=== PATIENT | male | born 1975 | race Caucasian/White ===

== ENCOUNTER → 2018-11-16 08:45 | Outpatient (CLI) | payer OTHER, MEDICAID, SELFPAY ==
--- NOTE | 2018-11-16 08:46 | DI.US.S_ITS ---
PROCEDURE: US SCROTUM INDICATIONS: scrotal mass TECHNIQUE: Real-time scanning was performed of the scrotum and testicles, with image documentation. Color and pulse Doppler interrogation was performed of both testicles. COMPARISON: None. FINDINGS: Right: Testicle is normal in size at 4.2 x 2.9 x 2.5 cm, and homogenous in echotexture. Epididymis is normal in overall size and morphology. No hydrocele or varicoceles. Overlying scrotal skin is normal in thickness. Left: Testicle is normal in size at 4 x 2.5 x 2.4 cm, and homogeneous in echotexture. The epididymal head is prominent and heterogeneous, yet without masses identified. No varicoceles. There is a moderately sized left-sided hydrocele. Overlying scrotal skin is normal in thickness. Doppler: Color and pulse Doppler demonstrate normal and symmetric arterial flow in both testicles. IMPRESSION: No intratesticular masses are seen. Moderate left-sided hydrocele. Prominent, heterogeneous left epididymis, yet without a focal mass identified. Dictated by: Timi Sears M.D. on 11/16/2018 at 8:48 Approved by: Timi Sears M.D. on 11/16/2018 at 8:50
== END ==
PROVIDERS: Family Provider Internal Medicine; PCP Family Medicine; Visit Provider Physician Assistant
DX: N50.9 Disorder of male genital organs, unspecified (principal); N43.3 Hydrocele, unspecified
CPT/HCPCS: 76870

== ENCOUNTER → 2019-01-22 15:17 | Outpatient (CLI) | payer OTHER, MEDICAID, SELFPAY ==
[2019-01-22 16:06] LABS: Appearance Urine UA CLEAR; Bilirubin Urine UA NEGATIVE (NEGATIVE); Color Urine UA YELLOW; Glucose Urine UA NEGATIVE (Negative); Ketones Urine UA NEGATIVE (NEGATIVE); Leukocyte Esterase Urine UA NEGATIVE (NEGATIVE); Nitrite Urine UA NEGATIVE (Negative); Occult Blood Urine UA 1+ (Negative); Protein Urine UA NEGATIVE (Negative); Specific Gravity Urine UA >=1.030 (1.000-1.035); Urobilinogen Urine UA 0.2 E.U./dL (0.2)
[2019-01-22 17:05] LABS: Bacteria Urine Few (2-10); Culture Indicated Urine Cult Not Indicated; RBC Urine 0-1/HPF (0-5/HPF); WBC Urine 0-1/HPF (0-5/HPF)
[2019-01-22 17:22] LABS: Hematocrit 39.8 % (41-53); Hemoglobin 13.9 g/dL (13.5-17.5); Mean Corpuscular HGB Conc 34.8 % (30-36); Mean Corpuscular Hemoglobin 31.1 PG (26-34); Mean Corpuscular Volume 89.3 fL (80-100); Platelet Count 249 X10^3/uL (150-400); Red Blood Cell Count 4.46 X10^6/uL (4.5-5.9); Red Cell Distribution Width 12.4 % (11.6-14.8); White Blood Cell Count 6.1 X10^3/uL (4.5-11.0)
[2019-01-22 17:33] LABS: HEMOLYSIS < 15 (0-50); Iron 127 ug/dL (49-181)
[2019-01-22 17:36] LABS: Alanine Aminotransferase 25 IU/L (21-72); Albumin 4.6 g/dL (3.5-5.0); Albumin Globulin Ratio 1.5 (1.0-2.8); Alkaline Phosphatase 68 U/L (38-126); Aspartate Aminotransferase 26 IU/L (17-59); BUN Creatinine Ratio 17.5 (6-22); Bilirubin Total 0.8 mg/dL (0.2-1.3); Blood Urea Nitrogen 14 mg/dL (9-20); Calcium 9.6 mg/dL (8.4-10.2); Carbon Dioxide 27 mmol/L (22-32); Chloride 103 mmol/L (98-107); Estimated Glomerular Filt Rate > 60.0 mL/min (>60); Globulin 3.1 g/dL (1.7-4.1); Glucose 73 mg/dL (70-100); HEMOLYSIS < 15 (0-50); Potassium 4.1 mmol/L (3.4-5.1); Sodium 139 mmol/L (137-145); Total Protein 7.7 g/dL (6.3-8.2)
[2019-01-22 17:44] LABS: Percent Iron Saturation 35 % (20-50); Total Iron Binding Capacity 361 ug/dL (261-462); Transferrin 280 mg/dL (206-381)
[2019-01-22 18:08] LABS: Ferritin 63.2 ng/mL (17.9-464)
[2019-01-22 18:18] LABS: Neutrophils Absolute Manual 4209 /uL (3000-5900); Nucleated Red Blood Cells 1 #/Diff; Total Cells Counted 100
[2019-01-22 18:19] LABS: Anisocytosis 1+; Hypochromasia 1+
[2019-01-22 18:39] LABS: Folate 13.6 ng/mL (2.76-20.0); Vitamin B12 536 pg/mL (239-931)
== END ==
PROVIDERS: Family Provider Internal Medicine; PCP Family Medicine; Visit Provider Nurse Practitioner Family
DX: R42 Dizziness and giddiness (principal)
CPT/HCPCS: 36415; 80053; 81001; 82607; 82728; 82746; 83540; 83550; 84443; 85025

== ENCOUNTER → 2019-01-22 15:18 | Outpatient (CLI) | payer OTHER, MEDICAID, SELFPAY | PROVIDERS: Visit Provider Nurse Practitioner Family | DX: R42 Dizziness and giddiness (principal); R53.83 Other fatigue ==

== ENCOUNTER 2019-09-19 19:27 | Emergency (ER) | payer OTHER, MEDICAID, SELFPAY ==
[2019-09-19 19:34] VITALS: BP 138/90; PULSE 70; RESP 14; TEMP 36.7; O2SAT 96; BMI 35.2
[2019-09-19] MEDS: PENICILLIN VK 250 MG TABLET 500 MG PO (20:02)
[2019-09-19] MEDS: KETOROLAC 60 MG/2 ML VIAL IM (20:02)
--- NOTE | 2019-09-19 20:33 | ED.DENTAL ---
HPI - Dental/Oral <RUDY Garcia - Last Filed: 09/19/19 20:36> General Chief complaint: Dental/Oral Stated complaint: tooth ache, thinks he broke something Time Seen by Provider: 09/19/19 19:30 Source: patient and family Mode of arrival: Ambulatory Limitations: no limitations History of Present Illness HPI Narrative: The patient is a 44-year-old current smoker with history of dental infection who presents with a chief complaint of sudden onset of right upper molar pain that started today. He states he thinks he broke that tooth a while ago, took some old antibiotics for an then got better. However today's becoming increasingly painful. He complains of pain and swelling. Denies any fevers nausea vomiting or diarrhea. He has tried ibuprofen and topical medication. He has not called his dentist source primary care provider yet. Related Data Previous Rx's Medication Instructions Recorded ketorolac 10 mg PO TID PRN #10 tab 09/19/19 penicillin V potassium 500 mg PO QID #40 tab 09/19/19 Allergies Allergy/AdvReac Type Severity Reaction Status Date / Time No Known Drug Allergies Allergy Verified 01/12/19 15:14 Review of Systems <RUDY Garcia - Last Filed: 09/19/19 20:36> Review of Systems Narrative: GENERAL: Denies chills, fatigue, malaise, fever, sweats. HEENT: See HPI RESPIRATORY: Denies dyspnea, cough, wheezing, hemoptysis, sputum. CARDIOVASCULAR: Denies chest pain, palpitations, orthopnea, edema, GASTROINTESTINAL: Denies nausea, vomiting, abdominal pain, diarrhea, constipation, melena. : Denies dysuria, frequency, incontinence, hematuria, urinary retention. MUSCULOSKELETAL: denies weakness, joint pain, or bony pain SKIN: Denies rash, skin lesions, or other NEUROLOGIC: Denies weakness, headache, numbness, change in speech, confusion, seizures, incoordination. PSYCHIATRIC: No concerning psychosocial issues. 12 point review of systems is negative except for those stated above Patient History <RUDY Garcia - Last Filed: 09/19/19 20:36> Social History Smoking Status: Current every day smoker Smoking Status: Current every day smoker alcohol intake frequency: 0-2 drinks per day Substance Use Type: does not use Exam <RUDY Garcia - Last Filed: 09/19/19 20:36> Narrative Exam Narrative: GENERAL: This is a well-nourished, well-developed patient, appears uncomfortable HEAD: Atraumatic. Normocephalic. No temporal or scalp tenderness. EYES: Pupils equal round and reactive. Extraocular motions intact. No scleral icterus. No injection or drainage. ENT: Nose without bleeding, purulent drainage or septal hematoma. Throat without erythema, tonsillar hypertrophy or exudate. Uvula midline. Airway patent. Poor dentition noted. Erythema and swelling noted around right front molar upper side multiple fractured or broken teeth noted NECK: Trachea midline. No JVD or lymphadenopathy. Supple, nontender, no meningeal signs. CARDIOVASCULAR: Regular rate and rhythm RESPIRATORY: No cough. No increased respiratory effort. No accessory muscle use. EXTREMITIES: No clubbing, cyanosis, or edema. No joint tenderness, effusion, or edema noted. BACK: Nontender without deformity or crepitance. No flank tenderness. NEURO: AOx3. SKIN: No rash or erythema. Initial Vital Signs Initial Vital Signs: Vital Signs Temperature 98.0 F 09/19/19 19:34 Pulse Rate 70 09/19/19 19:34 Respiratory Rate 14 09/19/19 19:34 Blood Pressure 138/90 09/19/19 19:34 Pulse Oximetry 96 09/19/19 19:34 <Lucius Dougherty DO - Last Filed: 09/19/19 21:21> Initial Vital Signs Initial Vital Signs: Vital Signs Temperature 98.0 F 09/19/19 19:34 Pulse Rate 70 09/19/19 19:34 Respiratory Rate 14 09/19/19 19:34 Blood Pressure 138/90 09/19/19 19:34 Pulse Oximetry 96 09/19/19 19:34 Scores <RUDY Garcia - Last Filed: 09/19/19 20:36> GCS Yvette coma scale eye opening: Spontaneous Yvette coma scale verbal response: Orientated [place] coma scale motor response: Obey commands Yvette coma scale total score: 15 Course <RUDY Garcia - Last Filed: 09/19/19 20:36> Orders Ordered: Discontinued Medications Ketorolac Tromethamine (Toradol) 60 mg IM NOW ONE Stop: 09/19/19 19:52 Last Admin: 09/19/19 20:02 Dose: 60 mg Documented by: YANDY Ketorolac Tromethamine (Toradol 10mg Prepack) 1 bottle MISC SEEINSTR ONE Stop: 09/19/19 20:32 Penicillin V Potassium (Veetids) 500 mg PO NOW ONE Stop: 09/19/19 19:52 Last Admin: 09/19/19 20:02 Dose: 500 mg Documented by: YANDY Penicillin V Potassium (Penicillin Vk 250mg Tab Prepack) 1 bottle MISC SEEINSTR ONE Stop: 09/19/19 20:32 Last Admin: 09/19/19 20:51 Dose: 1 bottle Documented by: YANDY Vital Signs Vital signs: Vital Signs - 8 hr 09/19/19 19:34 09/19/19 20:54 Temperature 98.0 F Pulse Rate 70 82 Respiratory Rate 14 14 Blood Pressure 138/90 131/88 Pulse Oximetry 96 100 <Lucius Dougherty DO - Last Filed: 09/19/19 21:21> Orders Ordered: Discontinued Medications Ketorolac Tromethamine (Toradol) 60 mg IM NOW ONE Stop: 09/19/19 19:52 Last Admin: 09/19/19 20:02 Dose: 60 mg Documented by: YANDY Ketorolac Tromethamine (Toradol 10mg Prepack) 1 bottle MISC SEEINSTR ONE Stop: 09/19/19 20:32 Penicillin V Potassium (Veetids) 500 mg PO NOW ONE Stop: 09/19/19 19:52 Last Admin: 09/19/19 20:02 Dose: 500 mg Documented by: YANDY Penicillin V Potassium (Penicillin Vk 250mg Tab Prepack) 1 bottle MISC SEEINSTR ONE Stop: 09/19/19 20:32 Last Admin: 09/19/19 20:51 Dose: 1 bottle Documented by: YANDY Vital Signs Vital signs: Vital Signs - 8 hr 09/19/19 19:34 09/19/19 20:54 Temperature 98.0 F Pulse Rate 70 82 Respiratory Rate 14 14 Blood Pressure 138/90 131/88 Pulse Oximetry 96 100 MDM - Dental/Oral <RUDY Garcia - Last Filed: 09/19/19 20:36> MDM Narrative Medical decision making narrative: The patient is a 44-year-old male who presents with a chief complaint of dental pain a possible infection. Exam indicates infection. Started patient on penicillin Vee K. Patient was given Toradol IM in the emergency department felt much better. Was also given prescription of Toradol strict instructions to not combine it with ibuprofen Aleve or any other NSAIDs. Discussed at length the importance of following up with primary care provider as well as his dentist. Patient did not want anything stronger for his pain. Discussed monitor for signs of systemic infection. Patient has no questions or concerns upon discharge and states understanding of return precautions as well as follow-up care. Discharge Plan Departure Patient Disposition: Home Clinical Impression: Dental infection Fracture of tooth Qualifiers: Encounter type: initial encounter Fracture type: closed Qualified Code(s): S02.5XXA - Fracture of tooth (traumatic), initial encounter for closed fracture Discharge Date/Time: 09/19/19 20:56 Instructions: Tooth Abscess, DI for Dental Pain Activity Restrictions/Additional Instructions: Please follow up with a dentist as soon as possible. I sent a prescription of an antibiotic to [facility] as well as a prescription of Toradol. We have given you take-home packs of Toradol and penicillin as well I have given you a prescription of Toradol. This is an NSAID. Do not combine it with other NSAIDs such as Aleve or ibuprofen. I suggest taking it with some food, as it can irritate your stomach. Please monitor for fever, inability keep down fluids etcetera Please also follow up with primary care provider Please come back to the emergency department for any acute concerns Prescriptions: New penicillin V potassium 500 mg tablet 500 mg PO QID Qty: 40 RF: 0 ketorolac 10 mg tablet 10 mg PO TID PRN (Reason: pain) Qty: 10 RF: 0 <Lucius Dougherty, DO - Last Filed: 09/19/19 21:21> Sign Out Provider Sign Out Attestation: Dr Dougherty Co-Sign Statement: I was available for consultation during this patient's emergency department visit. This chart is signed by myself for administrative purposes only. I did not have direct contact with this patient during this visit. They were seen independently by the APC.
[2019-09-19] MEDS: PENICILLIN 250 MG TAB PREPACK 1 BOTTLE MISC (20:51)
[2019-09-19 20:54] VITALS: BP 131/88; PULSE 82; RESP 14; O2SAT 100
== END 2019-09-19 20:56 | disposition home or self-care (01) ==
PROVIDERS: Emergency Provider Nurse Practitioner Family
DX: K04.7 Periapical abscess without sinus (principal); S02.5XXA Fracture of tooth (traumatic), initial encounter for closed fracture
CPT/HCPCS: 96372; 99283; J1885

== ENCOUNTER → 2019-10-11 12:00 | Outpatient (CLI) | payer OTHER, MEDICAID, SELFPAY ==
[2019-10-11 13:08] LABS: Add Manual Diff / Slide Review NO; Basophils Absolute Auto 0 /uL (0-100); Basophils Percent Auto 0.7 % (0-2); Eosinophils Absolute Auto 100 /uL (0-450); Eosinophils Percent Auto 2.7 % (2-4); Hematocrit 39.8 % (41-53); Lymphocytes Absolute Auto 1500 /uL (1100-4500); Lymphocytes Percent Auto 31.3 % (25-40); Mean Corpuscular HGB Conc 35.2 % (30-36); Mean Corpuscular Hemoglobin 31.5 PG (26-34); Mean Corpuscular Volume 89.6 fL (80-100); Monocytes Absolute Auto 300 /uL (0-900); Monocytes Percent Auto 5.4 % (3-14); Neutrophils Absolute Auto 2900 /uL (1500-7000); Neutrophils Percent Auto 59.9 % (50-75); Platelet Count 259 X10^3/uL (150-400); Red Blood Cell Count 4.45 X10^6/uL (4.5-5.9); Red Cell Distribution Width 12.3 % (11.6-14.8); White Blood Cell Count 4.8 X10^3/uL (4.5-11.0)
[2019-10-11 13:29] LABS: Hemoglobin A1C% w Est Avg Glu 5.2 % (4.0-6.0)
[2019-10-11 13:43] LABS: HEMOLYSIS < 15 (0-50); Iron 125 ug/dL (49-181)
[2019-10-11 13:46] LABS: Alanine Aminotransferase 22 IU/L (<50); Albumin 4.7 g/dL (3.5-5.0); Albumin Globulin Ratio 1.4 (1.0-2.8); Alkaline Phosphatase 62 U/L (38-126); Aspartate Aminotransferase 30 IU/L (17-59); BUN Creatinine Ratio 23.8 (6-22); Bilirubin Total 0.5 mg/dL (0.2-1.3); Blood Urea Nitrogen 19 mg/dL (9-20); Calcium 9.8 mg/dL (8.4-10.2); Carbon Dioxide 24 mmol/L (22-32); Chloride 103 mmol/L (98-107); Estimated Glomerular Filt Rate > 60.0 mL/min (>60); Globulin 3.3 g/dL (1.7-4.1); Glucose 92 mg/dL (70-100); HEMOLYSIS < 15 (0-50); Potassium 4.7 mmol/L (3.4-5.1); Sodium 139 mmol/L (137-145)
[2019-10-11 13:54] LABS: Percent Iron Saturation 34 % (20-50); Total Iron Binding Capacity 373 ug/dL (261-462); Transferrin 308 mg/dL (206-381)
[2019-10-11 14:14] LABS: Thyroid Stimulating Hormone 0.88 uIU/mL (0.47-4.68)
[2019-10-14 16:49] LABS: Testosterone Free 27.9 pg/mL (35.0-155.0); Testosterone Total 232 ng/dL (250-1100)
== END ==
PROVIDERS: PCP Family Medicine; Referring Provider Family Medicine; Visit Provider Family Medicine
DX: R53.83 Other fatigue (principal)
CPT/HCPCS: 36415; 80053; 83036; 83540; 83550; 84402; 84403; 84443; 85025

== ENCOUNTER → 2019-10-25 08:51 | Outpatient (CLI) | payer OTHER, MEDICAID, SELFPAY ==
[2019-10-25 10:30] LABS: Prostate Specific Antigen Scrn 0.385 ng/mL (0.1-4.0)
[2019-10-28 16:26] LABS: Testosterone Free 27.1 pg/mL (35.0-155.0); Testosterone Total 239 ng/dL (250-1100)
== END ==
PROVIDERS: PCP Family Medicine; Referring Provider Family Medicine; Visit Provider Family Medicine
DX: E34.9 Endocrine disorder, unspecified (principal)
CPT/HCPCS: 36415; 84402; 84403; G0103

== ENCOUNTER 2020-02-03 15:14 | Emergency (ER) | payer OTHER, MEDICAID, SELFPAY ==
[2020-02-03 15:19] VITALS: BP 121/78; PULSE 79; RESP 16; TEMP 36.6; O2SAT 97; BMI 34.4
--- NOTE | 2020-02-03 15:22 | DI.RAD.S_ITS ---
PROCEDURE: XR CHEST 2V INDICATIONS: chest pain TECHNIQUE: 2 views of the chest were acquired. COMPARISON: [facility], , CHEST 2 VIEW, 10/04/2017, 20:49. FINDINGS: Surgical changes and devices: None. Lungs and pleura: Lungs are clear. No pleural effusions or pneumothorax. Mediastinum: Mediastinal contours are normal. Heart size is normal. Bones and chest wall: No suspicious bony abnormalities. Soft tissues appear unremarkable. IMPRESSION: No acute disease Dictated by: Hernando Menezes M.D. on 02/03/2020 at 16:01 Approved by: Hernando Menezes M.D. on 02/03/2020 at 16:07
[2020-02-03 15:57] LABS: Add Manual Diff / Slide Review NO; Basophils Absolute Auto 0 /uL (0-100); Basophils Percent Auto 0.3 % (0-2); Eosinophils Absolute Auto 100 /uL (0-450); Eosinophils Percent Auto 2.3 % (2-4); Hemoglobin 13.5 g/dL (13.5-17.5); Lymphocytes Absolute Auto 1800 /uL (1100-4500); Lymphocytes Percent Auto 32.9 % (25-40); Mean Corpuscular HGB Conc 35.5 % (30-36); Mean Corpuscular Hemoglobin 31.6 PG (26-34); Mean Corpuscular Volume 88.9 fL (80-100); Monocytes Absolute Auto 300 /uL (0-900); Monocytes Percent Auto 5.9 % (3-14); Neutrophils Absolute Auto 3100 /uL (1500-7000); Neutrophils Percent Auto 58.6 % (50-75); Platelet Count 248 X10^3/uL (150-400); Red Blood Cell Count 4.27 X10^6/uL (4.5-5.9); Red Cell Distribution Width 12.3 % (11.6-14.8); White Blood Cell Count 5.4 X10^3/uL (4.5-11.0)
[2020-02-03 16:01] LABS: PTT Partial Thromboplastin Tim 29 SECONDS (26.4-36.2)
[2020-02-03 16:02] LABS: Alanine Aminotransferase 22 IU/L (<50); Albumin 4.6 g/dL (3.5-5.0); Albumin Globulin Ratio 1.4 (1.0-2.8); Alkaline Phosphatase 65 U/L (38-126); Aspartate Aminotransferase 35 IU/L (17-59); BUN Creatinine Ratio 18.2 (6-22); Bilirubin Total 0.7 mg/dL (0.2-1.3); Blood Urea Nitrogen 14 mg/dL (9-20); Calcium 9.4 mg/dL (8.4-10.2); Carbon Dioxide 27 mmol/L (22-32); Chloride 104 mmol/L (98-107); Creatine Kinase 210 U/L (55-170); Estimated Glomerular Filt Rate > 60.0 mL/min (>60); Globulin 3.4 g/dL (1.7-4.1); Glucose 83 mg/dL (70-100); HEMOLYSIS < 15 (0-50); Lipase 102 U/L (23-300); Potassium 4.1 mmol/L (3.4-5.1); Sodium 138 mmol/L (137-145)
[2020-02-03 16:13] LABS: Troponin I < 0.012 ng/mL (0.01-0.034)
[2020-02-03 16:17] LABS: CKMB % Relative Index 1.4 % (1.5-5.0); Creatine Kinase MB 2.92 ng/mL (<2.37)
[2020-02-03 18:17] VITALS: BP 104/63; PULSE 62; RESP 12; O2SAT 99
--- NOTE | 2020-02-03 18:26 | ED_ITS ---
HPI - General Adult General Chief complaint: Dizziness Stated complaint: lightheaded,dizziness,CP Time Seen by Provider: 02/03/20 18:11 History of Present Illness HPI narrative: 44-year-old gentleman with a history of opiate use disorder currently on Suboxone and alcohol use disorder who will be celebrating his 2 year sobriety anniversary next week presents with increasing dizziness, li ghtheadedness and a feeling of mental fogginess that is been present for a number of months and getting worse. Initially spoke with his primary care physician, Dr. Chavarria, and was started on testosterone transdermal however he has not noticed much change in his symptoms. Over the last months he has noticed intermittent chest pain of frequently lasting for 4-5 hours does not seem to be associated with activity, position or food. Symptoms do not resolve with omeprazole as his typical reflux symptoms to. He describes it as central substernal pressure frequently associated with diaphoresis but not with dyspnea. Additional complaints include dramatic increased fatigue over the last number of months, his reports that as soon as he sits down he falls asleep. He states that he does sleep well, no snoring and does wake up feeling refreshed. His notes that he has restless sleep is moving in quite a bit of talking in his sleep. He denies any depression symptoms, no memory difficulties, no suicidal ideation notes that he is at a stable spot in his life for things actually are going relatively well. Related Data Home Medications Medication Instructions Recorded Confirmed buprenorphine 8 mg-naloxone 2 mg 1 film BUCCAL DAILY 10/11/19 10/11/19 sublingual film Previous Rx's Medication Instructions Recorded testosterone 20.25 mg/1.25 gram 2 pump TOP DAILY #75 gram 11/03/19 (1.62 %) transdermal gel pump Allergies Allergy/AdvReac Type Severity Reaction Status Date / Time Penicillins AdvReac Severe N/V Verified 02/03/20 15:19 Review of Systems Review of Systems Narrative: Pertinent positive and negative findings as per HPI Remainder of review of systems is otherwise unremarkable for Constitutional: Fevers, weakness ENT: No sore throat, neck pain, ear pain CV: dyspnea on exertion Respiratory: Cough, wheeze, dyspnea GI: Nausea, vomiting, diarrhea, change in bowel habits, black or bloody stools : Dysuria, hematuria, flank pain MS: Muscle weakness, numbness, joint swelling or warmth Skin: Rashes, nonhealing lesions Endocrine: Fatigue, heat or cold intolerance, very dry skin Heme: Easy bruising or bleeding Allergy: Seasonal rhinorrhea, itchy eyes Patient History Medical History (Updated 02/03/20 @ 19:38 by Saranya Bhakta MD) Alcohol use disorder, moderate, in sustained remission (Acute) Fatigue (Acute) Opioid use disorder, mild, in sustained remission, on maintenance therapy (Acute) Testosterone deficiency (Acute) Social History Smoking Status: Current every day smoker Smoking Status: Current every day smoker alcohol intake frequency: 0-2 drinks per day Substance Use Type: does not use Exam Narrative Exam Narrative: General: Healthy appearing, in no acute distress. Able to give a complete and coherent history. Well-nourished well-developed HEENT: Moist mucous membranes, normal sclera with reactive pupils, Neck: No JVD, supple Respiratory: Lungs are clear to auscultation, no wheezing no rales no rhonchi. Full and symmetrical air movement Cardiac: Regular rate and rhythm no murmurs no bruits Abdomen: Soft nontender good bowel tones, no flank pain Skin: Warm and dry, no rashes Neurologic: Grossly neurologically intact with no obvious asymmetries or abnormalities Extremities: No trauma, well perfused Psych: Cooperative, appropriate insight and affect Initial Vital Signs Initial Vital Signs: Vital Signs Temperature 97.8 F 02/03/20 15:19 Pulse Rate 79 02/03/20 15:19 Respiratory Rate 16 02/03/20 15:19 Blood Pressure 121/78 02/03/20 15:19 Pulse Oximetry 97 02/03/20 15:19 Course Orders Ordered: ED Orders 02/03/20 15:22 XR chest 2V Stat EKG-12 Lead Stat 02/03/20 15:40 Complete Blood Count AUTO DIFF Stat Comprehensive Metabolic Panel Stat Lipase Stat Partial Thromboplastin Time Stat Prothrombin Time INR Stat Troponin & CK Cardiac Panel Stat 02/03/20 18:43 Troponin I Stat Discontinued Medications Nitroglycerin (Nitrostat) 0.4 mg SL NOW ONE Stop: 02/03/20 19:23 Last Admin: 02/03/20 19:28 Dose: 0.4 mg Documented by: SHELDON Vital Signs Vital signs: Vital Signs - 8 hr 02/03/20 15:19 02/03/20 18:17 02/03/20 19:28 Temperature 97.8 F Pulse Rate 79 62 63 Respiratory Rate 16 12 Blood Pressure 121/78 104/63 Blood Pressure [Right Arm] 104/63 Pulse Oximetry 97 99 02/03/20 19:30 Temperature Pulse Rate 66 Respiratory Rate 22 Blood Pressure Blood Pressure [Right Arm] 101/54 L Pulse Oximetry 97 Medical Decision Making Medical Records Medical records reviewed: Yes I reviewed the patient's medical records. Lab Data Lab results reviewed: Yes I reviewed the patient's lab results. Lab results narrative: Most recent TSH was inappropriate ranges at 0.88 in September of 2019 Result diagrams: 02/03/20 15:40 02/03/20 15:40 Labs: Lab Results 02/03/20 02/03/20 02/03/20 Range/Units 15:40 15:40 15:40 WBC 5.4 (4.5-11.0) X10^3/uL RBC 4.27 L (4.5-5.9) X10^6/uL Hgb 13.5 (13.5-17.5) g/dL Hct 38.0 L (41-53) % MCV 88.9 (80-100) fL MCH 31.6 (26-34) PG MCHC 35.5 (30-36) % RDW 12.3 (11.6-14.8) % Plt Count 248 (150-400) X10^3/uL Neut % (Auto) 58.6 (50-75) % Lymph % (Auto) 32.9 (25-40) % [place] % (Auto) 5.9 (3-14) % Eos % (Auto) 2.3 (2-4) % Baso % (Auto) 0.3 (0-2) % Neut # (Auto) 3100 (5779-0483) /uL Lymph # (Auto) 1800 (3363-4034) /uL [place] # (Auto) 300 (0-900) /uL Eos # (Auto) 100 (0-450) /uL Baso # (Auto) 0 (0-100) /uL PT 12.0 (10.1-12.7) SECONDS INR 1.0 (0.9-1.3) APTT 29 (26.4-36.2) SECONDS Sodium 138 (137-145) mmol/L Potassium 4.1 (3.4-5.1) mmol/L Chloride 104 (98-107) mmol/L Carbon Dioxide 27 (22-32) mmol/L BUN 14 (9-20) mg/dL Creatinine 0.77 (0.66-1.25) mg/dL Estimated GFR > 60.0 (>60) mL/min BUN/Creatinine Ratio 18.2 (6-22) Glucose 83 (70-100) mg/dL Calcium 9.4 (8.4-10.2) mg/dL Total Bilirubin 0.7 (0.2-1.3) mg/dL AST 35 (17-59) IU/L ALT 22 (<50) IU/L Alkaline Phosphatase 65 (38-126) U/L Total Creatine Kinase 210 H (55-170) U/L CK-MB (CK-2) 2.92 H (<2.37) ng/mL CK-MB (CK-2) Rel Index 1.4 L (1.5-5.0) % Troponin I < 0.012 (0.01-0.034) ng/mL Total Protein 8.0 (6.3-8.2) g/dL Albumin 4.6 (3.5-5.0) g/dL Globulin 3.4 (1.7-4.1) g/dL Albumin/Globulin Ratio 1.4 (1.0-2.8) Lipase 102 (23-300) U/L 02/03/20 Range/Units 18:43 WBC (4.5-11.0) X10^3/uL RBC (4.5-5.9) X10^6/uL Hgb (13.5-17.5) g/dL Hct (41-53) % MCV (80-100) fL MCH (26-34) PG MCHC (30-36) % RDW (11.6-14.8) % Plt Count (150-400) X10^3/uL Neut % (Auto) (50-75) % Lymph % (Auto) (25-40) % [place] % (Auto) (3-14) % Eos % (Auto) (2-4) % Baso % (Auto) (0-2) % Neut # (Auto) (8817-4771) /uL Lymph # (Auto) (1938-7601) /uL [place] # (Auto) (0-900) /uL Eos # (Auto) (0-450) /uL Baso # (Auto) (0-100) /uL PT (10.1-12.7) SECONDS INR (0.9-1.3) APTT (26.4-36.2) SECONDS Sodium (137-145) mmol/L Potassium (3.4-5.1) mmol/L Chloride (98-107) mmol/L Carbon Dioxide (22-32) mmol/L BUN (9-20) mg/dL Creatinine (0.66-1.25) mg/dL Estimated GFR (>60) mL/min BUN/Creatinine Ratio (6-22) Glucose (70-100) mg/dL Calcium (8.4-10.2) mg/dL Total Bilirubin (0.2-1.3) mg/dL AST (17-59) IU/L ALT (<50) IU/L Alkaline Phosphatase (38-126) U/L Total Creatine Kinase (55-170) U/L CK-MB (CK-2) (<2.37) ng/mL CK-MB (CK-2) Rel Index (1.5-5.0) % Troponin I < 0.012 (0.01-0.034) ng/mL Total Protein (6.3-8.2) g/dL Albumin (3.5-5.0) g/dL Globulin (1.7-4.1) g/dL Albumin/Globulin Ratio (1.0-2.8) Lipase (23-300) U/L Imaging Data Chest x-ray: Radiologist's Impression: IMPRESSION: No acute disease Dictated by: Hernando Menezes M.D. on 02/03/2020 at 16:01 ECG Data Attestation: I personally reviewed and interpreted this ECG as follows: Interpretation: Sinus rhythm at a rate of 61 Normal intervals, normal axis No acute ischemic changes MDM Narrative Medical decision making narrative: 44-year-old gentleman presents with increasing episodes of dizziness and head fogginess with intermittent episodes of chest pain that does not seem to be related to activity. There is no evidence of infection or acute coronary syndrome currently. There is no history of a change to medications or unusual exposures. Does not report symptoms consi stent with depression. No complaints and no specific neurologic findings to suggest stroke for physical brain changes or compression (such as tumors, hydrocephalus, space-occupying lesions). At this point, I do not have an acute explanation and I do believe it is safe for him to be discharged home. Will suggest that he follow-up with his primary care physician to continue workup. Discharge Plan Departure Patient Disposition: Home Clinical Impression: Dizziness Chest pain Qualifiers: Chest pain type: other chest pain Qualified Code(s): R07.89 - Other chest pain Instructions: DI for Atypical Chest Pain, DI for Dizziness-Nonvertigo Activity Restrictions/Additional Instructions: Thank you for coming in today Your workup today included blood work, chest x-ray and EKGs. Chest x-ray an EKG were unremarkable. Blood work does not suggest any acute coronary findings. There is no suggestion of kidney function abnormalities or electrolyte abnormalities. No significant abnormalities in red blood cells or white blood cells. Recent thyroid in September was unremarkable. Testosterone was notably low in October and may be appropriate to recheck with Dr. Chavarria. Unfortunately I do not have a full explanation for the dizziness and brain fogginess that you are experiencing. At this point I am not finding any life- threatening issues. I believe it is safe for you to go home. Please follow-up with Dr. Chavarria and see if he has any additional suggestions or recommendations as to the next steps in follow-up. Given the intermittent chest pain that you have been having over the last months he may want to schedule you for an outpatient stress test and will likely want to recheck your testosterone as well. I wish you the best. Was nice to see you again and congratulations on your 2 year anniversary next week! Prescriptions: No Action buprenorphine-naloxone [Suboxone] 8-2 mg film 1 film BUCCAL DAILY RF: 0 testosterone [AndroGel] 20.25 mg/1.25 gram (1.62 %) gel in metered-dose pump 2 pump TOP DAILY Qty: 75 RF: 1 Referrals: Tomi Chavarria, [Primary Care Provider] -
--- NOTE | 2020-02-03 18:30 | PC.NURSE ---
C/o generalized fatigue, weakness. Intermittent chest pain and feeling foggy in the head. Dizziness but may not be the right word patient state he has been having constipation issues has had to do some fleet enemas at home. Reports some cold sweats that come out of no where, bad enough that I have had to change my shirt Patient states pain in chest doesn't change with omeprazole and doesn't seem to think it is related to eating.
[2020-02-03 19:13] LABS: Troponin I < 0.012 ng/mL (0.01-0.034)
[2020-02-03 19:28] VITALS: BP 104/63; PULSE 63
[2020-02-03] MEDS: NITROGLYCERIN 0.4 MG SL TAB SL (19:28)
[2020-02-03 19:30] VITALS: BP 101/54; PULSE 66; RESP 22; O2SAT 97
[2020-02-03 19:54] VITALS: BP 107/55; PULSE 72; RESP 18; O2SAT 98
== END 2020-02-03 19:45 | disposition home or self-care (01) ==
PROVIDERS: Emergency Medicine; Emergency Provider Emergency Medicine; PCP Family Medicine
DX: R42 Dizziness and giddiness (principal); R07.89 Other chest pain; F11.11 Opioid abuse, in remission; F10.21 Alcohol dependence, in remission
CPT/HCPCS: 36415; 71046; 80053; 82550; 82553; 83690; 84484; 85025; 85610; 85730; 93005; 99284

== ENCOUNTER 2020-08-22 20:37 | Emergency (ER) | payer OTHER, MEDICAID, SELFPAY ==
[2020-08-22 20:46] VITALS: BP 130/80; PULSE 72; RESP 17; TEMP 36.8; O2SAT 98; BMI 34.4
[2020-08-22 21:14] LABS: COVID19 -Nasal RAPID Negative (Negative)
--- NOTE | 2020-08-22 22:26 | ED.GENADULT ---
HPI - General Adult General Chief complaint: Upper Respiratory Symptoms Stated complaint: headache, fatigue, loss of taste, covid exposure Time Seen by Provider: 08/22/20 22:25 Source: patient Mode of arrival: Ambulatory Limitations: no limitations Related Data Home Medications Medication Instructions Recorded Confirmed buprenorphine 8 mg-naloxone 2 mg 1 film BUCCAL DAILY 10/11/19 10/11/19 sublingual film Previous Rx's Medication Instructions Recorded testosterone 20.25 mg/1.25 gram 2 pump TOP DAILY #75 gram 11/03/19 (1.62 %) transdermal gel pump Allergies Allergy/AdvReac Type Severity Reaction Status Date / Time Penicillins AdvReac Severe N/V Verified 02/03/20 15:19 Patient History Medical History (Updated 02/18/20 @ 00:01 by ) Alcohol use disorder, moderate, in sustained remission Fatigue Opioid use disorder, mild, in sustained remission, on maintenance therapy Testosterone deficiency Social History Smoking Status: Current every day smoker Smoking Status: Current every day smoker alcohol intake frequency: 0-2 drinks per day Substance Use Type: does not use Exam Initial Vital Signs Initial Vital Signs: Vital Signs Temperature 98.2 F 08/22/20 20:46 Pulse Rate 72 08/22/20 20:46 Respiratory Rate 17 08/22/20 20:46 Blood Pressure 130/80 08/22/20 20:46 Pulse Oximetry 98 08/22/20 20:46 Course Orders Ordered: ED Orders 08/22/20 20:50 COVID19 Stat Vital Signs Vital signs: Vital Signs - 8 hr 08/22/20 20:46 Temperature 98.2 F Pulse Rate 72 Respiratory Rate 17 Blood Pressure 130/80 Pulse Oximetry 98 Medical Decision Making Lab Data Labs: Lab Results 08/22/20 Range/Units 20:50 COVID-19 PCR Negative (Negative) Discharge Plan Departure Prescriptions: No Action buprenorphine-naloxone [Suboxone] 8-2 mg film 1 film BUCCAL DAILY RF: 0 testosterone [AndroGel] 20.25 mg/1.25 gram (1.62 %) gel in metered-dose pump 2 pump TOP DAILY Qty: 75 RF: 1
--- NOTE | 2020-08-22 22:27 | ED.GENADULT ---
HPI - General Adult General Chief complaint: Upper Respiratory Symptoms Stated complaint: headache, fatigue, loss of taste, covid exposure Time Seen by Provider: 08/22/20 22:25 Source: patient Mode of arrival: Ambulatory Limitations: no limitations History of Present Illness HPI narrative: Patient is a 45-year-old male who was exposed to an individual who lived in the same house as individuals who were positive for COVID. He states that he is having headache and fatigue. He states his exposure has been over the past week. He comes to the emergency department seeking COVID testing. Related Data Home Medications Medication Instructions Recorded Confirmed buprenorphine 8 mg-naloxone 2 mg 1 film BUCCAL DAILY 10/11/19 10/11/19 sublingual film Previous Rx's Medication Instructions Recorded testosterone 20.25 mg/1.25 gram 2 pump TOP DAILY #75 gram 11/03/19 (1.62 %) transdermal gel pump Allergies Allergy/AdvReac Type Severity Reaction Status Date / Time Penicillins AdvReac Severe N/V Verified 02/03/20 15:19 Review of Systems Constitutional Constitutional: Reports fatigue and Reports headache(s) ENT Ears, Nose, Mouth, and Throat: Reports headache(s) and Denies sore throat Cardiovascular Cardiovascular: Denies chest pain and Denies dyspnea Respiratory Respiratory: Denies dyspnea Gastrointestinal Gastrointestinal: Denies abdominal pain Musculoskeletal Musculoskeletal: Denies myalgias Integumentary/Breasts Skin/Breast: Denies rash Neurologic Neurologic: Denies behavioral changes and Reports headache(s) Psychiatric Psychiatric: Denies behavioral changes Endocrine Endocrine: Reports fatigue Hematologic/Lymphatic Hematologic/Lymphatic: Denies easy bleeding and Denies easy bruising Allergic/Immunologic Allergic/Immunologic: Denies urticaria Patient History Medical History Alcohol use disorder, moderate, in sustained remission Fatigue Opioid use disorder, mild, in sustained remission, on maintenance therapy Testosterone deficiency Social History Smoking Status: Current every day smoker Smoking Status: Current every day smoker alcohol intake frequency: 0-2 drinks per day Substance Use Type: does not use Exam Initial Vital Signs Initial Vital Signs: Vital Signs Temperature 98.2 F 08/22/20 20:46 Pulse Rate 72 08/22/20 20:46 Respiratory Rate 17 08/22/20 20:46 Blood Pressure 130/80 08/22/20 20:46 Pulse Oximetry 98 08/22/20 20:46 Const General: cooperative and comfortable Resp Effort & Inspection: normal respiratory effort Cardio Rate: regular rate Skin Lesions: no lesions Neuro General: patient alert, patient awake and patient oriented x3 Cognition: normal cognition Speech: speech normal Extrem General: normal to inspection Psych Appearance: grossly normal and well kempt Course Orders Ordered: ED Orders 08/22/20 20:50 COVID19 Stat Vital Signs Vital signs: Vital Signs - 8 hr 08/22/20 20:46 08/22/20 22:36 Temperature 98.2 F Pulse Rate 72 61 Respiratory Rate 17 96 H Blood Pressure 130/80 124/75 Pulse Oximetry 98 96 Medical Decision Making Lab Data Lab results reviewed: Yes I reviewed the patient's lab results. Labs: Lab Results 08/22/20 Range/Units 20:50 COVID-19 PCR Negative (Negative) MDM Narrative Medical decision making narrative: Patient's COVID test is negative. I did discuss with him that this test indicate what is going on currently. We discussed the potential back that he potentially has not had enough time between his exposure and having a positive test. Informed him that if he is having any symptoms that he should self quarantine. No indication for antibiotics. He is given return precautions. He expressed understanding and agreement. Discharge Plan Departure Patient Disposition: Home Clinical Impression: Fatigue, Headache Instructions: Can COVID-19 be prevented? Activity Restrictions/Additional Instructions: Your COVID test today was negative. We still recommend that you isolate yourself or your having symptoms until you have been 24 hours without any symptoms. Be sure your wearing your mask. Return to the emergency department for any new or worsening symptoms Prescriptions: No Action buprenorphine-naloxone [Suboxone] 8-2 mg film 1 film BUCCAL DAILY RF: 0 testosterone [AndroGel] 20.25 mg/1.25 gram (1.62 %) gel in metered-dose pump 2 pump TOP DAILY Qty: 75 RF: 1 Referrals: Tomi Chavarria, [Primary Care Provider] -
[2020-08-22 22:36] VITALS: BP 124/75; PULSE 61; RESP 96; O2SAT 96
== END 2020-08-22 22:38 | disposition home or self-care (01) ==
PROVIDERS: Emergency Provider Emergency Medicine; PCP Family Medicine
DX: R53.83 Other fatigue (principal); R51.9 Headache, unspecified; R43.9 Unspecified disturbances of smell and taste; Z20.828 Contact with and (suspected) exposure to other viral communicable diseases
CPT/HCPCS: 87635; 99281; 99282

== ENCOUNTER → 2020-10-12 15:32 | Outpatient (CLI) | payer OTHER, MEDICAID, SELFPAY ==
--- NOTE | 2020-10-12 15:33 | DI.RAD.S_ITS ---
PROCEDURE: XR CHEST 2V INDICATIONS: SHORTNESS OF BREATH TECHNIQUE: 2 views of the chest were acquired. COMPARISON: [facility], , XR CHEST 2V, 02/03/2020, 15:37. FINDINGS: Surgical changes and devices: None. Lungs and pleura: Lungs are clear. No pleural effusions or pneumothorax. Mediastinum: Mediastinal contours are normal. Heart size is normal. Bones and chest wall: No suspicious bony abnormalities. Soft tissues appear unremarkable. IMPRESSION: No acute process. Dictated by: Jessica Estevez M.D. on 10/12/2020 at 16:27 Approved by: Jessica Estevez M.D. on 10/12/2020 at 16:27
[2020-10-12 17:06] LABS: Add Manual Diff / Slide Review NO; Basophils Absolute Auto 0 /uL (0-100); Basophils Percent Auto 0.7 % (0-2); Eosinophils Absolute Auto 200 /uL (0-450); Eosinophils Percent Auto 4.2 % (2-4); Hematocrit 39.2 % (41-53); Hemoglobin 13.7 g/dL (13.5-17.5); Lymphocytes Absolute Auto 1500 /uL (1100-4500); Lymphocytes Percent Auto 31.7 % (25-40); Mean Corpuscular HGB Conc 34.9 % (30-36); Mean Corpuscular Hemoglobin 31.2 PG (26-34); Mean Corpuscular Volume 89.5 fL (80-100); Monocytes Absolute Auto 300 /uL (0-900); Monocytes Percent Auto 5.8 % (3-14); Neutrophils Absolute Auto 2700 /uL (1500-7000); Neutrophils Percent Auto 57.6 % (50-75); Platelet Count 246 X10^3/uL (150-400); Red Blood Cell Count 4.38 X10^6/uL (4.5-5.9); Red Cell Distribution Width 12.2 % (11.6-14.8); White Blood Cell Count 4.7 X10^3/uL (4.5-11.0)
[2020-10-12 17:38] LABS: Alanine Aminotransferase 24 IU/L (<50); Albumin 4.4 g/dL (3.5-5.0); Albumin Globulin Ratio 1.3 (1.0-2.8); Alkaline Phosphatase 60 U/L (38-126); Aspartate Aminotransferase 29 IU/L (17-59); BUN Creatinine Ratio 22.4 (6-22); Bilirubin Total 0.3 mg/dL (0.2-1.3); Blood Urea Nitrogen 17 mg/dL (9-20); Calcium 9.5 mg/dL (8.4-10.2); Carbon Dioxide 26 mmol/L (22-32); Chloride 105 mmol/L (98-107); Estimated Glomerular Filt Rate > 60.0 mL/min (>60); Globulin 3.5 g/dL (1.7-4.1); Glucose 85 mg/dL (70-100); HEMOLYSIS < 15 (0-50); Potassium 4.1 mmol/L (3.4-5.1); Sodium 137 mmol/L (137-145); Total Protein 7.9 g/dL (6.3-8.2)
== END ==
PROVIDERS: PCP Family Medicine; Referring Provider Registered Nurse; Visit Provider Registered Nurse
DX: R06.02 Shortness of breath (principal); R53.83 Other fatigue
CPT/HCPCS: 36415; 71046; 80053; 85025

== ENCOUNTER → 2020-10-16 13:30 | Outpatient (CLI) | payer OTHER, MEDICAID, SELFPAY ==
[2020-10-16 16:07] LABS: COVID19 -Nasal RAPID Negative (Negative)
== END ==
PROVIDERS: PCP Family Medicine; Visit Provider Physician Assistant
DX: Z01.812 Encounter for preprocedural laboratory examination (principal); Z20.822 Contact with and (suspected) exposure to COVID-19
CPT/HCPCS: 87635

== ENCOUNTER → 2020-10-17 07:51 | Outpatient (CLI) | payer OTHER, MEDICAID, SELFPAY ==
--- NOTE | 2020-10-17 09:04 | PM.TREADMILL ---
Cardiac Stress Test Report Referral & Results Date Patient Seen: 10/17/20 Time Patient Seen: 08:45 Requesting provider: Nedra Camilo Indication: Chest pain Rest ECG: Normal sinus rhythm Procedure Note: Today following both written and verbal informed consent, the patient was exercised according to a standard Alejandro protocol. The patient exercised for a total of 10 minutes 3 seconds achieving a maximum heart rate of 169. Patient's maximum systolic blood pressure was 140. This was an estimated 12.8 METs. Normal hemodynamic response to exercise. Slightly reduced exercise capacity (MAYA +10% on active scale). No EKG changes. No signs or symptoms of angina. Presenting symptoms not reproduced on exercise. Impression: Low probability for ischemia. Lala treadmill score of 10 is associated with a 97% 5 year survival rate from cardiac causes of mortality. Please note: Actual ECG tracings can be found in the PACS system.
== END ==
PROVIDERS: PCP Family Medicine; Referring Provider Registered Nurse; Visit Provider Registered Nurse
DX: R07.89 Other chest pain (principal)
CPT/HCPCS: 93016; 93017; 93018

== ENCOUNTER 2021-05-24 10:36 | Emergency (ER) | payer OTHER, MEDICAID, SELFPAY ==
[2021-05-24 10:41] VITALS: BP 144/81; PULSE 65; RESP 16; TEMP 36.3; O2SAT 97; BMI 35.3
[2021-05-24 11:07] LABS: Add Manual Diff / Slide Review NO; Basophils Absolute Auto 0 /uL (0-100); Basophils Percent Auto 0.6 % (0-2); Eosinophils Absolute Auto 200 /uL (0-450); Eosinophils Percent Auto 4.6 % (2-4); Hematocrit 39.2 % (41-53); Hemoglobin 13.5 g/dL (13.5-17.5); Lymphocytes Absolute Auto 1300 /uL (1100-4500); Lymphocytes Percent Auto 30.5 % (25-40); Mean Corpuscular HGB Conc 34.5 % (30-36); Mean Corpuscular Hemoglobin 31.2 PG (26-34); Mean Corpuscular Volume 90.3 fL (80-100); Monocytes Absolute Auto 300 /uL (0-900); Monocytes Percent Auto 6.4 % (3-14); Neutrophils Absolute Auto 2500 /uL (1500-7000); Neutrophils Percent Auto 57.9 % (50-75); Platelet Count 243 X10^3/uL (150-400); Red Blood Cell Count 4.34 X10^6/uL (4.5-5.9); White Blood Cell Count 4.3 X10^3/uL (4.5-11.0)
[2021-05-24 11:08] LABS: INR 0.9 (0.9-1.3); Prothrombin Time 10.3 SECONDS (10.1-12.7)
[2021-05-24 11:10] LABS: PTT Partial Thromboplastin Tim 30 SECONDS (26.4-36.2)
[2021-05-24 11:13] LABS: Appearance Urine UA CLEAR; Bilirubin Urine UA NEGATIVE (NEGATIVE); Color Urine UA YELLOW; Glucose Urine UA TRACE g/dL (Negative); Ketones Urine UA NEGATIVE (NEGATIVE); Leukocyte Esterase Urine UA NEGATIVE (NEGATIVE); Nitrite Urine UA NEGATIVE (Negative); Occult Blood Urine UA 2+ (Negative); Protein Urine UA NEGATIVE (Negative); Urobilinogen Urine UA 0.2 E.U./dL (0.2); pH Urine UA 6.5 (4.5-8.0)
[2021-05-24 11:15] LABS: Alanine Aminotransferase 22 IU/L (<50); Albumin 4.6 g/dL (3.5-5.0); Albumin Globulin Ratio 1.5 (1.0-2.8); Alkaline Phosphatase 55 U/L (38-126); Aspartate Aminotransferase 27 IU/L (17-59); BUN Creatinine Ratio 18.8 (6-22); Bilirubin Total 0.4 mg/dL (0.2-1.3); Blood Urea Nitrogen 13 mg/dL (9-20); Calcium 9.5 mg/dL (8.4-10.2); Carbon Dioxide 27 mmol/L (22-32); Chloride 106 mmol/L (98-107); Estimated Glomerular Filt Rate > 60.0 mL/min (>60); Glucose 98 mg/dL (70-100); HEMOLYSIS < 15 (0-50); Potassium 4.6 mmol/L (3.4-5.1); Sodium 140 mmol/L (137-145); Total Protein 7.6 g/dL (6.3-8.2)
[2021-05-24 11:26] LABS: Bacteria Urine None Seen; Culture Indicated Urine Cult Not Indicated; RBC Urine 1-5/HPF (0-5/HPF); WBC Urine None Seen (0-5/HPF)
--- NOTE | 2021-05-24 12:13 | ED_ITS ---
HPI - GI Bleed General Chief complaint: GI Bleed Stated complaint: Hard stool, fatigue, SOB, light headed Time Seen by Provider: 05/24/21 11:15 History of Present Illness HPI Narrative: 46-year-old male smoker with prior history of anemia and opioid dependence presents at the request of his primary care office for evaluation of increasing fatigue and lightheadedness. He states he symptoms have been building for many weeks if not months. He states exertion seems to make his symptoms worse while rest improves then. He denies any headache or blurred vision. He denies any trouble with speech or focal findings. He denies any chest pain but does get fatigued and short of breath with exertion. He denies any cough. He has had no fever or chills. He does chronically have trouble with bowel movements and frequently strains and has difficulty. Despite his use of Suboxone he does not routinely use any stool softeners. He denies any blood in his stool or black, tarry description but does state his stools have been dark brown. Related Data Home Medications Medication Instructions Recorded Confirmed buprenorphine 8 mg-naloxone 2 mg 1 film BUCCAL DAILY 10/11/19 10/12/20 sublingual film (Suboxone) Previous Rx's Medication Instructions Recorded testosterone 20.25 mg/1.25 gram 2 pump TOP DAILY #75 gram 11/21/20 (1.62 %) transdermal gel pump (AndroGel) Allergies Allergy/AdvReac Type Severity Reaction Status Date / Time Penicillins AdvReac Severe N/V Verified 10/12/20 14:48 Review of Systems Review of Systems Narrative: GENERAL: See HPI HEENT: Denies sinus pain, ear pain, sore throat, difficulty swallowing, dizziness. RESPIRATORY: Denies dyspnea, cough, wheezing, hemoptysis, sputum. CARDIOVASCULAR: Denies chest pain, palpitations, orthopnea, edema, GASTROINTESTINAL: See HPI. : Denies dysuria, frequency, incontinence, hematuria, urinary retention. MUSCULOSKELETAL: denies weakness, joint pain, or bony pain SKIN: Denies rash, skin lesions, or other NEUROLOGIC: Denies weakness, headache, numbness, change in speech, confusion, seizures, incoordination. PSYCHIATRIC: No concerning psychosocial issues. 12 point review of systems is negative except for those stated above Patient History Medical History Alcohol use disorder, moderate, in sustained remission Fatigue Opioid use disorder, mild, in sustained remission, on maintenance therapy Testosterone deficiency Social History Smoking Status: Current every day smoker Smoking Status: Current every day smoker alcohol intake frequency: 0-2 drinks per day Substance Use Type: does not use Exam Narrative Exam Narrative: GENERAL: [46] year old patient appears stated age. Well- developed patient, in mild distress. HEAD: Atraumatic. Normocephalic. EYES: Pupils equal round and reactive. Extraocular motions intact. No scleral icterus. No injection or drainage. ENT: Nose without bleeding, purulent drainage. Throat without erythema, tonsillar hypertrophy or exudate. Airway patent. NECK: Trachea midline. Non tender CARDIOVASCULAR: Regular rate and rhythm without murmurs, gallops, or rubs. RESPIRATORY: Clear to auscultation. Breath sounds equal bilaterally. No wheezes, rales, or rhonchi. GASTROINTESTINAL: Abdomen soft, non-tender, nondistended. RECTAL: No blood or pain, no fissure or hemorrhoids. Heme NEG EXTREMITIES: No edema or joint tenderness. BACK: Nontender without deformity or crepitance. No flank tenderness. NEURO: AOx3. SKIN: No rash or erythema of visible areas Initial Vital Signs Initial Vital Signs: Vital Signs Temperature 97.3 F L 05/24/21 10:41 Pulse Rate 65 05/24/21 10:41 Respiratory Rate 16 05/24/21 10:41 Blood Pressure 144/81 H 05/24/21 10:41 Pulse Oximetry 97 05/24/21 10:41 Course Orders Ordered: ED Orders 05/24/21 10:52 Complete Blood Count AUTO DIFF Stat Type and Screen Stat Urinalysis and Microscopic Stat 05/24/21 11:04 Partial Thromboplastin Time Stat Prothrombin Time INR Stat 05/24/21 11:05 Comprehensive Metabolic Panel Stat 05/24/21 11:15 Troponin & CK Cardiac Panel Stat 05/24/21 12:14 XR acute abdomen series Stat Vital Signs Vital signs: Vital Signs - 8 hr 05/24/21 10:41 05/24/21 13:20 Temperature 97.3 F L Pulse Rate 65 55 L Respiratory Rate 16 Blood Pressure 144/81 H 120/67 Pulse Oximetry 97 100 MDM - GI Bleed Lab Data Result diagrams: 05/24/21 10:52 05/24/21 11:05 Labs: Lab Results 05/24/21 05/24/21 05/24/21 Range/Units 10:52 10:52 10:52 WBC 4.3 L (4.5-11.0) X10^3/uL RBC 4.34 L (4.5-5.9) X10^6/uL Hgb 13.5 (13.5-17.5) g/dL Hct 39.2 L (41-53) % MCV 90.3 (80-100) fL MCH 31.2 (26-34) PG MCHC 34.5 (30-36) % RDW 12.0 (11.6-14.8) % Plt Count 243 (150-400) X10^3/uL Neut % (Auto) 57.9 (50-75) % Lymph % (Auto) 30.5 (25-40) % [place] % (Auto) 6.4 (3-14) % Eos % (Auto) 4.6 H (2-4) % Baso % (Auto) 0.6 (0-2) % Neut # (Auto) 2500 (2910-8692) /uL Lymph # (Auto) 1300 (6674-2347) /uL [place] # (Auto) 300 (0-900) /uL Eos # (Auto) 200 (0-450) /uL Baso # (Auto) 0 (0-100) /uL PT (10.1-12.7) SECONDS INR (0.9-1.3) APTT (26.4-36.2) SECONDS Sodium (137-145) mmol/L Potassium (3.4-5.1) mmol/L Chloride (98-107) mmol/L Carbon Dioxide (22-32) mmol/L BUN (9-20) mg/dL Creatinine (0.66-1.25) mg/dL Estimated GFR (>60) mL/min BUN/Creatinine Ratio (6-22) Glucose (70-100) mg/dL Calcium (8.4-10.2) mg/dL Total Bilirubin (0.2-1.3) mg/dL AST (17-59) IU/L ALT (<50) IU/L Alkaline Phosphatase (38-126) U/L Total Creatine Kinase (55-170) U/L CK-MB (CK-2) (<2.37) ng/mL CK-MB (CK-2) Rel Index (1.5-5.0) % Troponin I (0.01-0.034) ng/mL Total Protein (6.3-8.2) g/dL Albumin (3.5-5.0) g/dL Globulin (1.7-4.1) g/dL Albumin/Globulin Ratio (1.0-2.8) Urine Color Yellow Urine Appearance Clear Urine pH 6.5 (4.5-8.0) Ur Specific [place] 1.020 (1.000-1.035) Urine Protein Negative (Negative) Urine Glucose (UA) Trace H (Negative) g/dL Urine Ketones Negative (NEGATIVE) Urine Occult Blood 2+ H (Negative) Urine Nitrate Negative (Negative) Urine Bilirubin Negative (NEGATIVE) Urine Urobilinogen 0.2 (0.2) E.U./dL Ur Leukocyte Esterase Negative (NEGATIVE) Urine RBC 1-5/hpf (0-5/HPF) Urine WBC None seen (0-5/HPF) Urine Bacteria None seen (None) Ur Culture Indicated? Cult not indicated Blood Type B Positive Antibody Screen Negative 05/24/21 05/24/21 05/24/21 Range/Units 11:04 11:05 11:15 WBC (4.5-11.0) X10^3/uL RBC (4.5-5.9) X10^6/uL Hgb (13.5-17.5) g/dL Hct (41-53) % MCV (80-100) fL MCH (26-34) PG MCHC (30-36) % RDW (11.6-14.8) % Plt Count (150-400) X10^3/uL Neut % (Auto) (50-75) % Lymph % (Auto) (25-40) % [place] % (Auto) (3-14) % Eos % (Auto) (2-4) % Baso % (Auto) (0-2) % Neut # (Auto) (0206-3618) /uL Lymph # (Auto) (2518-4386) /uL [place] # (Auto) (0-900) /uL Eos # (Auto) (0-450) /uL Baso # (Auto) (0-100) /uL PT 10.3 (10.1-12.7) SECONDS INR 0.9 (0.9-1.3) APTT 30 (26.4-36.2) SECONDS Sodium 140 (137-145) mmol/L Potassium 4.6 (3.4-5.1) mmol/L Chloride 106 (98-107) mmol/L Carbon Dioxide 27 (22-32) mmol/L BUN 13 (9-20) mg/dL Creatinine 0.69 (0.66-1.25) mg/dL Estimated GFR > 60.0 (>60) mL/min BUN/Creatinine Ratio 18.8 (6-22) Glucose 98 (70-100) mg/dL Calcium 9.5 (8.4-10.2) mg/dL Total Bilirubin 0.4 (0.2-1.3) mg/dL AST 27 (17-59) IU/L ALT 22 (<50) IU/L Alkaline Phosphatase 55 (38-126) U/L Total Creatine Kinase 114 (55-170) U/L CK-MB (CK-2) 1.36 (<2.37) ng/mL CK-MB (CK-2) Rel Index 1.2 L (1.5-5.0) % Troponin I < 0.012 (0.01-0.034) ng/mL Total Protein 7.6 (6.3-8.2) g/dL Albumin 4.6 (3.5-5.0) g/dL Globulin 3.0 (1.7-4.1) g/dL Albumin/Globulin Ratio 1.5 (1.0-2.8) Urine Color Urine Appearance Urine pH (4.5-8.0) Ur Specific [place] (1.000-1.035) Urine Protein (Negative) Urine Glucose (UA) (Negative) g/dL Urine Ketones (NEGATIVE) Urine Occult Blood (Negative) Urine Nitrate (Negative) Urine Bilirubin (NEGATIVE) Urine Urobilinogen (0.2) E.U./dL Ur Leukocyte Esterase (NEGATIVE) Urine RBC (0-5/HPF) Urine WBC (0-5/HPF) Urine Bacteria (None) Ur Culture Indicated? Blood Type Antibody Screen Imaging Data Abdominal x-ray: Radiologist's Impression: [address] [address] XRay Report Signed Patient: Pascual Pop MR#: [id number] : 1975 Acct:[id number] Age/Sex: 46 / M Date of Service: 05/24/21 Loc: ED Accession Number: [id number] ?? Procedure: XR acute abdomen series Ordering Provider: Joel Colón D.O. PROCEDURE:? XR ACUTE ABDOMEN SERIES ? INDICATIONS:? SOB, abdominal pain ? TECHNIQUE:? One view chest and two views of the abdomen were acquired.? ? COMPARISON:? None. ? FINDINGS:? ? Surgical changes and devices:? None.? ? Chest:? Lungs are clear.? Heart size is normal.? No pleural effusions.? No pneumoperitoneum.? ? Abdomen:? Bowel gas pattern is normal.? No suspicious calcifications.? Visualized solid organ contours appear normal.? ? Bones:? No suspicious bony lesions.? ? IMPRESSION:? No acute finding. ? ? Dictated by: Salvador Tena M.D. on 05/24/2021 at 13:04 ? ? Approved by: Salvador Tena M.D. on 05/24/2021 at 13:05 ? MDM Narrative Medical decision making narrative: 46-year-old male with very reassuring physical exam and labs. Multiple diagnoses considered including anemia, GI bleed, cardiac disease, electrolyte abnormality versus other. His labs and imaging are all very reassuring. No obvious cause but extensive discussion with patient about the need for follow-up. Return precautions given and questions answered to his apparent satisfaction Discharge Plan Departure Patient Disposition: Home Clinical Impression: Constipation, Abdominal pain, Acute dyspnea Instructions: DI for Abdominal Pain-Adult, DI for Constipation Activity Restrictions/Additional Instructions: *You have been diagnosed with [ abdominal pain likely due at least in some part to constipation ] *What to do: *Take over the counter medications as directed: 1. Metamucil - is a bulk forming laxative and adds fiber 2. Colace - softens your stool 3. Dulcolax suppository - stimulates your bowels *Follow up with your primary care provider in 2-3 days, call for appointment *Return to ER if you should have any new, worsening or concerning symptoms *Drink plenty of water and eat foods high in fiber *Stay as active as you can as this helps move your bowels as well Prescriptions: No Action testosterone [AndroGel] 20.25 mg/1.25 gram (1.62 %) gel in metered-dose pump 2 pump TOP DAILY Qty: 75 RF: 1 buprenorphine-naloxone [Suboxone] 8-2 mg film 1 film BUCCAL DAILY RF: 0 Referrals: Tomi Chavarria, [Primary Care Provider] -
--- NOTE | 2021-05-24 12:14 | DI.RAD.S_ITS ---
PROCEDURE: XR ACUTE ABDOMEN SERIES INDICATIONS: SOB, abdominal pain TECHNIQUE: One view chest and two views of the abdomen were acquired. COMPARISON: None. FINDINGS: Surgical changes and devices: None. Chest: Lungs are clear. Heart size is normal. No pleural effusions. No pneumoperitoneum. Abdomen: Bowel gas pattern is normal. No suspicious calcifications. Visualized solid organ contours appear normal. Bones: No suspicious bony lesions. IMPRESSION: No acute finding. Dictated by: Salvador Tena M.D. on 05/24/2021 at 13:04 Approved by: Salvador Tena M.D. on 05/24/2021 at 13:05
[2021-05-24 12:25] LABS: Creatine Kinase 114 U/L (55-170)
[2021-05-24 12:38] LABS: Troponin I < 0.012 ng/mL (0.01-0.034)
[2021-05-24 12:41] LABS: CKMB % Relative Index 1.2 % (1.5-5.0); Creatine Kinase MB 1.36 ng/mL (<2.37)
[2021-05-24 13:20] VITALS: BP 120/67; PULSE 55; O2SAT 100
== END 2021-05-24 13:49 | disposition home or self-care (01) ==
PROVIDERS: Emergency Provider Emergency Medicine; PCP Family Medicine
DX: K59.00 Constipation, unspecified (principal); R10.9 Unspecified abdominal pain; R06.00 Dyspnea, unspecified
CPT/HCPCS: 36415; 74022; 80053; 81001; 82550; 82553; 84484; 85025; 85610; 85730; 86850; 86900; 86901; 99284

== ENCOUNTER → 2021-10-24 14:13 | Outpatient (CLI) | payer OTHER, MEDICAID, SELFPAY ==
[2021-10-24 14:41] LABS: COVID19 -Nasal RAPID Negative (Negative)
== END ==
PROVIDERS: PCP Family Medicine; Visit Provider Surgery
DX: Z20.822 Contact with and (suspected) exposure to COVID-19; Z01.812 Encounter for preprocedural laboratory examination
CPT/HCPCS: 87635; C9803

== ENCOUNTER 2021-10-25 09:34 | Day surgery (SDC) | payer OTHER, MEDICAID, SELFPAY ==
--- NOTE | 2021-10-25 | PATH_ITS ---
[facility] Accession Number: [id number] No. of containers..02 Tissue . 01 Material submitted: . PART A: colon - APPENDICILE ORIFICE POLYP PART B: colon - TRANSVERSE COLON POLYP . 02 Diagnosis: A. Appendiceal Orifice, Polyp, Biopsy: Tubulovillous adenoma. No evidence of malignancy or high-grade dysplasia. . B. Transverse Colon, Polyp, Biopsy: Tubular adenoma. MRV 10/29/2021 1208 Local . 02 Electronically signed: . Trinidad Monroy MD, Pathologist NPI- [id number] . 01 Gross description: . Part A: APPENDICILE ORIFICE POLYP: Received in formalin are multiple fragment(s) of santana, soft tissue measuring 2.3 x 0.9 x 0.1 cm in aggregate submitted entirely in 1 cassette(s) Part B: TRANSVERSE COLON POLYP: Received in formalin is 1 fragment(s) of santana, soft tissue measuring 0.4 x 0.2 x 0.2 cm submitted entirely in 1 cassette(s) /CPE 10/26/2021 1652 Local . 02 Pathologist provided ICD-10: D12.1, D12.3 . 02 CPT . 500167, 109989 Specimen Comment: A courtesy copy of this report has been sent to [phone] Performed at: 01 [facility] [address] [facility], [place], [place] [id number] MD Niko Yang MD Phone: [phone] Performed at: [address] [facility] [address] [place], [place] [id number] MD Trinidad Monroy MD Phone: [phone]
[2021-10-25 09:52] VITALS: BP 105/66; PULSE 62; RESP 16; TEMP 36.7; O2SAT 98; BMI 77.5
[2021-10-25] MEDS: LACTATED RINGERS 1,000 ML 42 ML IV ×2 (10:02→11:28)
--- NOTE | 2021-10-25 10:19 | PM.HP.1 ---
History of Present Illness History of Present Illness Date Patient Seen: 10/25/21 Time Patient Seen: 10:19 Chief complaint: DX COLONOSCOPY Narrative: 46-year-old man with history of opioid use on Suboxone who has changes in bowel function. Feels like something is blocking his bowel movements. He has had some improvement with dietary fiber. Patient History Medical History Alcohol use disorder, moderate, in sustained remission Fatigue Opioid use disorder, mild, in sustained remission, on maintenance therapy Testosterone deficiency Family & Social History Social History: household members spouse Tobacco & Substance use: Smoking Status Current every day smoker alcohol intake former alcohol intake frequency 0-2 drinks per day Substance Use Type does not use Meds Home Medications and Allergies Home Medications Medication Instructions Recorded Confirmed Type buprenorphine 8 mg-naloxone 2 mg 1 film BUCCAL DAILY 10/11/19 10/25/21 History sublingual film (Suboxone) Allergies Allergy/AdvReac Type Severity Reaction Status Date / Time Penicillins AdvReac Severe N/V Verified 10/25/21 09:46 Exam Vital Signs (past 8 hours): - 10/25/21 09:52 Temperature 98.0 F Pulse Rate 62 Respiratory Rate 16 Blood Pressure 105/66 Pulse Oximetry 98 Oxygen Delivery Method Room Air Const General: comfortable Resp Effort & Inspection: normal respiratory effort GI Palpation: soft Assessment & Plan Assessment and plan (1) Constipation: Qualifiers: Constipation type: unspecified constipation type Qualified Code(s): K59.00 - Constipation, unspecified Status: Inactive Plan 46-year-old man with change in bowel function. Risks and benefits of colonoscopy described. We will proceed. COVID-19 COVID-19 status: Negative Result date/Date tested (Pos, Neg/Pending): 10/24/21 Time Spent With Patient Critical Care time: I spent a total of [] minutes of critical care time on this patient's care today; this time is exclusive of procedural time.
[2021-10-25] MEDS: MIDAZOLAM 5 MG/5 ML VIAL IV (11:01)
[2021-10-25] MEDS: fentaNYL 250 MCG/5 ML INJ IV (11:01)
--- NOTE | 2021-10-25 11:08 | P.OP.COLON_ITS ---
Operative Date/Time/Diagnoses Date of procedure: 10/25/21 Time of procedure: 11:12 Pre-op diagnosis: Change in bowel function Post-op diagnosis: same Procedure & Clinicians Study performed: Colonoscopy Same procedure as scheduled: Yes Surgeon: Arthur Deal Procedure Notes SCOAP/Timeout: yes Procedure in detail: Procedure: The patient was brought to the endoscopy suite, placed in left lateral decubitus position. The patient was connected to monitoring devices. A time-out was performed. Sedation was administered. Once the patient was adequately sedated, a digital rectal exam was performed and was normal. The scope was then inserted and advanced to the cecum where the appendiceal orifice was identified and photographed. There was a polyp right at the appendiceal orifice which was probably about 5 mm. It was initially involuted into the appendix and so was grabbed with a cold forceps to pull it out into the cecum. This caused a small fragment to pull off into the jaws of the forceps. We then removed the remainder of the polyp with a cold snare. This was all sent together as appendiceal orifice polyp. There was an additional small polyp about 5 mm in transverse colon. The prep was inadequate and caused incomplete visualization of the distal transverse colon and left colon. The remainder of the colon that could be visualized was essentially normal. The scope was retroflexed in the rectum. No abnormalities were noted. The scope was st raightened and removed. The patient was awakened and brought to recovery. Versed: 17 mg Fentanyl: 375 mcg EBL: 5 mL Findings: Appendiceal orifice polyp approximately 5 mm and transverse colon isabela yp approximately 4 mm Scope withdrawal time: 18 Sedation minutes: 40 Post-procedure Recommendations: Will call with biopsy results Disposition: PACU
[2021-10-25 11:10] VITALS: BP 96/56; PULSE 58; RESP 13; TEMP 36.7; O2SAT 95
[2021-10-25 11:15] VITALS: BP 104/61; PULSE 58; RESP 12; O2SAT 96
[2021-10-25 11:25] VITALS: BP 109/78; PULSE 61; RESP 11; O2SAT 95
[2021-10-25 11:30] VITALS: BP 109/79; PULSE 59; RESP 13; O2SAT 97
[2021-10-25 11:35] VITALS: BP 110/70; PULSE 68; RESP 18; TEMP 36.7; O2SAT 98
--- NOTE | 2021-10-25 12:06 | SUR.PHASEII ---
Addendum entered by Radha Espinoza R.N. 10/25/21 12:29: 1215-[continued]-especially since pt had made a comment on way to car, about going to work later today. All ready had retold pt-no work today, no driving until tommorrow. Addendum entered by Radha Espinoza R.N. 10/25/21 12:27: 1215- recalled on cellphone and spoke about patient not driving for 24 hours and especially not going to work Original Note: 10/25/21- 1135-report from Jenna MCKINNON. Home instructions given to patient -reexplained findings. papers in envelope. juice taken. c/o discomfort in abdomen, explained gas from procedure or positioning/procedure. abdomen large , round and soft. 1145-vss. wants to use restroom and go home.states he is coming around,less hazy. offered to rest/stay longer-declined offers. 1200pm-Patient discharged to car and wifes care with all paperwork,and belongings by wheelchair . Explained to pt recieved large dose of versed,which was a relaxant and that although he looks wide awake and alert, has short attention span/ forgetful.and tomorrow may not realize what occurred today. Encouraged to go home and sleep it off more. patient states feels more alert and improving. gait steady. Was adamant earlier as dressing for home that he did not feel he needed to stay here longer and sleep it off. used restroom prior to going home to expell gas. also explained to that in envelope patinet has is his paperwork, which explains what the doctor found,recommendations and information. Patient had been told few times,forgets what doctor/spanish linguist had told him.
== END 2021-10-25 12:01 | disposition home or self-care (01) ==
PROVIDERS: PCP Family Medicine; Referring Provider Surgery; Visit Provider Surgery
PROC: 0DJD8ZZ Inspection of Lower Intestinal Tract, Via Natural or Artificial Opening Endoscopic (ICD-10-PCS; CPT 45378; principal; 2021-10-25 10:45)
DX: R19.4 Change in bowel habit (principal); D12.1 Benign neoplasm of appendix; D12.3 Benign neoplasm of transverse colon
CPT/HCPCS: 45385; 45380; 99152; 99153; J2250; J3010

== ENCOUNTER → 2022-12-16 09:53 | Outpatient (CLI) | payer OTHER, MEDICAID, SELFPAY ==
[2022-12-16 11:12] LABS: Add Manual Diff / Slide Review NO; Basophils Absolute Auto 0 /uL (0-100); Basophils Percent Auto 0.6 % (0-2); Eosinophils Absolute Auto 100 /uL (0-450); Eosinophils Percent Auto 3.5 % (2-4); Hematocrit 39.2 % (41-53); Hemoglobin 13.6 g/dL (13.5-17.5); Lymphocytes Absolute Auto 1200 /uL (1100-4500); Lymphocytes Percent Auto 33.7 % (25-40); Mean Corpuscular HGB Conc 34.7 % (30-36); Mean Corpuscular Hemoglobin 31.4 PG (26-34); Mean Corpuscular Volume 90.4 fL (80-100); Monocytes Absolute Auto 200 /uL (0-900); Monocytes Percent Auto 6.9 % (3-14); Neutrophils Absolute Auto 1900 /uL (1500-7000); Neutrophils Percent Auto 55.3 % (50-75); Platelet Count 251 X10^3/uL (150-400); Red Blood Cell Count 4.34 X10^6/uL (4.5-5.9); Red Cell Distribution Width 12.7 % (11.6-14.8); White Blood Cell Count 3.5 X10^3/uL (4.5-11.0)
[2022-12-16 11:38] LABS: Alanine Aminotransferase 25 IU/L (<50); Albumin 4.4 g/dL (3.5-5.0); Albumin Globulin Ratio 1.3 (1.0-2.8); Alkaline Phosphatase 58 U/L (38-126); Aspartate Aminotransferase 28 IU/L (17-59); Bilirubin Total 0.4 mg/dL (0.2-1.3); Blood Urea Nitrogen 18 mg/dL (9-20); Calcium 9.1 mg/dL (8.4-10.2); Carbon Dioxide 25 mmol/L (22-32); Chloride 105 mmol/L (98-107); Cholesterol 250 mg/dL (140-199); Estimated Glomerular Filt Rate > 60 mL/min (>60); Globulin 3.3 g/dL (1.7-4.1); Glucose 104 mg/dL (70-100); HDL Cholesterol 44 mg/dL (40-60); HEMOLYSIS < 15 (0-50); LDL Cholesterol Calculated 183 mg/dL (<100); Sodium 139 mmol/L (137-145); Total Protein 7.7 g/dL (6.3-8.2); Triglycerides 116 mg/dL (35-150)
[2022-12-16 12:01] LABS: Prostate Specific Antigen 0.279 ng/mL (0.10-4.00)
[2022-12-23 10:03] LABS: Percent Free Testosterone 1.54 % (1.50-4.20); Testosterone Free 4.46 ng/dL (5.00-21.00); Testosterone Total 289.4 ng/dL (264.0-916.0)
== END ==
PROVIDERS: PCP Family Medicine; Referring Provider Family Medicine; Visit Provider Family Medicine
DX: E34.9 Endocrine disorder, unspecified (principal); F11.11 Opioid abuse, in remission
CPT/HCPCS: 36415; 80053; 80061; 84153; 84402; 84403; 85025

== ENCOUNTER 2023-06-05 08:12 | Day surgery (SDC) | payer OTHER, MEDICAID, SELFPAY ==
--- NOTE | 2023-06-05 | PATH_ITS ---
[facility] Accession Number: [id number] No. of containers..02 Tissue . 01 Material submitted: . PART A: colon - ASENDING POLYP PART B: colon - TRANSVERSE POLYP . 01 Diagnosis: A. Ascending Colon, Polyp: Tubular adenoma. . B. Transverse Colon, Polyp: Tubular adenoma. [facility] 06/10/2023 1414 Local . 01 Electronically signed: . Trinidad Monroy MD, Pathologist NPI- [id number] . 01 Gross description: . Part A: ASENDING POLYP: Received in formalin is multiple fragment(s) of santana, soft tissue measuring 1.5 x 0.5 x 0.2 cm in aggregate submitted entirely in 1 cassette(s) Part B: TRANSVERSE POLYP: Received in formalin is multiple fragment(s) of santana, soft tissue measuring 2.0 x 0.5 x 0.3 cm in aggregate submitted entirely in 1 cassette(s) /AAY 06/07/2023 0156 Local . 01 Pathologist provided ICD-10: D12.2, D12.3 . 01 CPT . 790177, 806412 Performed at: 01 [facility] [address] [place] [address] [address], [place], [place] [id number] MD Niko Yang MD Phone: [phone]
[2023-06-05] MEDS: LACTATED RINGERS 1,000 ML 42 ML IV (08:37)
[2023-06-05 08:49] VITALS: BP 109/72; PULSE 75; RESP 16; TEMP 36.3; O2SAT 97; BMI 31.5
--- NOTE | 2023-06-05 09:36 | P.HP_ITS ---
History of Present Illness History of Present Illness Date Patient Seen: 06/05/23 Time Patient Seen: 09:36 Chief complaint: Colonoscopy Narrative: Pascual is a 48-year-old man who has history of colon polyps. No known family history because he is adopted. [facility] Medical History Alcohol use disorder, moderate, in sustained remission Colon polyps Encounter for well adult exam with abnormal findings Fatigue Hyperlipidemia Opioid use disorder, mild, in sustained remission, on maintenance therapy Prediabetes Testosterone deficiency Social History household members: spouse Smoking Status: Current every day smoker alcohol intake: former Meds Home Medications and Allergies Home Medications Medication Instructions Recorded Confirmed Type testosterone cypionate 200 mg/mL 100 mg (0.5 mL) IM QWEEK #10 mL 03/18/23 06/05/23 Rx intramuscular oil (Depo-Testosterone) peg 3350-electrolytes 236 240 ml PO Q10M #4,000 mL 03/25/23 Rx gram-22.74 gram-6.74 gram-5.86 gram solution (Golytely) buprenorphine 8 mg-naloxone 2 mg 1 film buccal DAILY #30 ea 06/04/23 06/05/23 Rx sublingual film (Suboxone) Allergies Allergy/AdvReac Type Severity Reaction Status Date / Time Penicillins AdvReac Severe N/V Verified 06/05/23 08:37 Exam Vital Signs (past 8 hours): - 06/05/23 08:49 Temperature 97.4 F L Pulse Rate 75 Respiratory Rate 16 Blood Pressure 109/72 Pulse Oximetry 97 Oxygen Delivery Method Room Air Oxygen Delivery Method Room Air Const General: No acute distress Resp Effort & Inspection: normal respiratory effort Assessment & Plan Assessment and plan (1) Personal history of colonic polyps: Status: Acute Plan We reviewed the risks and benefits of colonoscopy for history of colon polyps and he would like to proceed.
--- NOTE | 2023-06-05 10:07 | PM.OP.COLON ---
Operative Date/Time/Diagnoses Date of procedure: 06/05/23 Time of procedure: 10:07 Pre-op diagnosis: Personal history of colon polyps Post-op diagnosis: same Procedure & Clinicians Study performed: Colonoscopy Same procedure as scheduled: Yes Surgeon: Arthur Deal Procedure Notes Procedure in detail: Surgeon: Arthur Deal MD Anesthesia: Ursula Andrea DO Procedure: The patient was brought to the endoscopy suite, placed in left lateral decubitus position. The patient was connected to monitoring devices. A time-out was performed. Sedation was administered. Once the patient was adequately sedated, a digital rectal exam was performed and was normal. The scope was then inserted and advanced to the cecum where the appendiceal orifice was identified and photographed. The scope was then slowly withdrawn over greater than 6 minutes. The mucosa was thoroughly inspected. There was a 5 mm polyp ascending colon removed with a cold snare. There was a 4 mm polyp in the transverse colon removed with a cold snare. The scope was retroflexed in the rectum. No other abnormalities were seen. The scope was straightened and removed. The patient was awakened and brought to recovery. Scope withdrawal time: 12 minutes Sedation time: 18 minutes EBL: 2 mL Findings: 5 mm polyp in the ascending colon and 4 mm polyp in the transverse colon Post-procedure Disposition: PACU
[2023-06-05 10:09] VITALS: BP 85/46; PULSE 92; RESP 12; TEMP 36.7; O2SAT 94
[2023-06-05 10:16] VITALS: BP 93/56; PULSE 68; PULSE 71; RESP 13; RESP 18; O2SAT 97
[2023-06-05 10:19] VITALS: BP 102/48; PULSE 62; RESP 16; O2SAT 95
[2023-06-05 10:25] VITALS: BP 108/76; PULSE 64; RESP 12; O2SAT 95
[2023-06-05 10:31] VITALS: BP 101/69; PULSE 61; RESP 20; O2SAT 98
== END 2023-06-05 10:47 | disposition home or self-care (01) ==
PROVIDERS: PCP Family Medicine; Referring Provider Surgery; Visit Provider Surgery
PROC: 0DJD8ZZ Inspection of Lower Intestinal Tract, Via Natural or Artificial Opening Endoscopic (ICD-10-PCS; CPT 45378; principal; 2023-06-05 09:15)
DX: Z12.11 Encounter for screening for malignant neoplasm of colon (principal); Z86.010 Personal history of colon polyps; D12.2 Benign neoplasm of ascending colon; D12.3 Benign neoplasm of transverse colon
CPT/HCPCS: 45385; J2704

== ENCOUNTER → 2023-06-18 07:09 | Outpatient (CLI) | payer OTHER, MEDICAID, SELFPAY ==
[2023-06-18 08:00] LABS: Alanine Aminotransferase 22 IU/L (<50); Albumin 4.3 g/dL (3.5-5.0); Albumin Globulin Ratio 1.2 (1.0-2.8); Alkaline Phosphatase 72 U/L (38-126); Aspartate Aminotransferase 32 IU/L (17-59); Bilirubin Total 0.8 mg/dL (0.2-1.3); Blood Urea Nitrogen 17 mg/dL (9-20); Calcium 9.4 mg/dL (8.4-10.2); Carbon Dioxide 25 mmol/L (22-32); Chloride 103 mmol/L (98-107); Cholesterol 205 mg/dL (140-199); Estimated Glomerular Filt Rate > 60 mL/min (>60); Globulin 3.6 g/dL (1.7-4.1); Glucose 111 mg/dL (70-100); HDL Cholesterol 40 mg/dL (40-60); HEMOLYSIS 34 (0-50); LDL Cholesterol Calculated 141 mg/dL (<100); Potassium 4.1 mmol/L (3.4-5.1); Sodium 136 mmol/L (137-145); Total Protein 7.9 g/dL (6.3-8.2); Triglycerides 119 mg/dL (35-150)
[2023-06-18 08:05] LABS: Total Iron Binding Capacity 348 ug/dL (261-462); Transferrin 273 mg/dL (206-381)
[2023-06-18 08:09] LABS: Add Manual Diff / Slide Review NO; Basophils Absolute Auto 0 /uL (0-100); Basophils Percent Auto 0.7 % (0-2); Eosinophils Absolute Auto 300 /uL (0-450); Eosinophils Percent Auto 6.1 % (2-4); Hematocrit 40.1 % (41-53); Hemoglobin 13.6 g/dL (13.5-17.5); Lymphocytes Absolute Auto 1400 /uL (1100-4500); Lymphocytes Percent Auto 28.2 % (25-40); Mean Corpuscular HGB Conc 33.9 % (30-36); Mean Corpuscular Hemoglobin 30.6 PG (26-34); Monocytes Absolute Auto 400 /uL (0-900); Monocytes Percent Auto 8.6 % (3-14); Neutrophils Absolute Auto 2800 /uL (1500-7000); Neutrophils Percent Auto 56.4 % (50-75); Platelet Count 292 X10^3/uL (150-400); Red Blood Cell Count 4.45 X10^6/uL (4.5-5.9); Red Cell Distribution Width 12.4 % (11.6-14.8)
[2023-06-18 08:25] LABS: HEMOLYSIS 36 (0-50); Iron 128 ug/dL (49-181); Percent Iron Saturation 37 % (20-50)
[2023-06-18 08:29] LABS: Prostate Specific Antigen 0.279 ng/mL (0.10-4.00)
[2023-06-18 08:30] LABS: Reticulocyte Count, Percent 0.9 % (0.9-2.6)
[2023-06-18 08:49] LABS: Vitamin B12 602 pg/mL (239-931)
[2023-06-18 09:12] LABS: Hemoglobin A1C% w Est Avg Glu 5.5 % (4.0-6.0)
== END ==
PROVIDERS: PCP Family Medicine; Referring Provider Family Medicine; Visit Provider Family Medicine
DX: Z00.00 Encounter for general adult medical examination without abnormal findings (principal); R73.03 Prediabetes; D64.9 Anemia, unspecified; R53.83 Other fatigue; E34.9 Endocrine disorder, unspecified
CPT/HCPCS: 80053; 80061; 82607; 83036; 83540; 83550; 84153; 84402; 84403; 85025; 85045

== ENCOUNTER → 2023-08-05 10:49 | Outpatient (CLI) | payer OTHER, MEDICAID, SELFPAY ==
--- NOTE | 2023-08-05 10:54 | DI.RAD.S_ITS ---
PROCEDURE: XR LUMBAR SPINE 2-3V INDICATIONS: Lower back pin TECHNIQUE: 3 views of the lumbar spine were acquired. COMPARISON: None. FINDINGS: Bones: 5 [id number]-dup-[id number] vertebrae are present. There is trace retrolisthesis of L4 on L5. Jidz-bu-jgdifwjb disc space narrowing is noted from L3-4 through L5-S1 most severe at L5-S1. Moderate to severe foraminal narrowing is present L3-4, L4-5 as well as L5-S1. No vertebral body compression fractures. No suspicious bony lesions. Soft tissues: Overlying bowel gas pattern is normal. No suspicious soft tissue calcifications. IMPRESSION: No acute bony abnormality. 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 Dictated by: Concepción Curtis M.D. on 08/05/2023 at 15:43 Approved by: Concepción Curtis M.D. on 08/05/2023 at 15:44
--- NOTE | 2023-08-05 10:54 | DI.RAD.S_ITS ---
PROCEDURE: XR HIP W PEL IF DONE DAVID MIN 4V INDICATIONS: Lower back pin TECHNIQUE: AP pelvis with lateral view(s) of the bilateral hip(s). COMPARISON: None. FINDINGS: Bones: No fractures or dislocations. Pelvic ring appears intact. No suspicious bony lesions. Minimal to mild bilateral degenerative hip joint space narrowing. Minimal periarticular osteophytes are present. Lower lumbar spine demonstrates no visualized fracture. Soft tissues: The visualized bowel gas pattern is normal. No suspicious soft tissue calcifications. IMPRESSION: Minimal early arthritic changes. Dictated by: Concepción Curtis M.D. on 08/05/2023 at 15:43 Approved by: Concepción Curtis M.D. on 08/05/2023 at 15:43
== END ==
PROVIDERS: PCP Family Medicine; Referring Provider Family Medicine; Visit Provider Family Medicine
DX: M47.816 Spondylosis without myelopathy or radiculopathy, lumbar region (principal); M47.817 Spondylosis without myelopathy or radiculopathy, lumbosacral region; M54.50 Low back pain, unspecified
CPT/HCPCS: 72100; 73522

== ENCOUNTER → 2023-12-06 18:45 | Outpatient (CLI) | payer OTHER, MEDICAID, SELFPAY ==
[2023-12-06 19:40] LABS: Influenza A - CEPHEID Flu A NEGATIVE (NEGATIVE); Influenza B - CEPHEID Flu B NEGATIVE (NEGATIVE); Respiratory Syncytial Virus Negative (Negative)
[2023-12-06 19:41] LABS: COVID-19 CEPHEID 4-PLEX PCR Negative (Negative)
== END ==
PROVIDERS: Family Provider Family Medicine; PCP Family Medicine; Visit Provider Registered Nurse
DX: R06.02 Shortness of breath (principal)
CPT/HCPCS: 0241U

== ENCOUNTER → 2023-12-06 18:52 | Outpatient (CLI) | payer OTHER, MEDICAID, SELFPAY ==
--- NOTE | 2023-12-06 18:53 | DI.RAD.S_ITS ---
PROCEDURE: XR CHEST 2V INDICATIONS: Shortness of breath TECHNIQUE: 2 views of the chest were acquired. COMPARISON: [facility], CR, XR CHEST 2V, 10/12/2020, 15:32. FINDINGS: Surgical changes and devices: None. Lungs and pleura: Lungs are clear. No pleural effusions or pneumothorax. Mediastinum: Mediastinal contours are normal. Heart size is normal. Bones and chest wall: No suspicious bony abnormalities. Soft tissues appear unremarkable. IMPRESSION: No acute cardiopulmonary abnormality is seen. Dictated by: Timi Sears M.D. on 12/06/2023 at 18:14 Approved by: Timi Sears M.D. on 12/06/2023 at 18:14
== END ==
LOC: RAD 18:53
PROVIDERS: Family Provider Family Medicine; PCP Family Medicine; Referring Provider Registered Nurse; Visit Provider Registered Nurse
DX: R06.02 Shortness of breath (principal)
CPT/HCPCS: 0241U; 71046

== ENCOUNTER 2024-01-20 09:00 | Outpatient (RCR) | payer OTHER, MEDICAID, SELFPAY ==
--- NOTE | 2023-12-16 17:33 | PT.OIE ---
Current Diagnoses Pain in left hip (12/16/23) Pain in left knee (12/16/23) Low back pain, unspecified (12/16/23) Abnormal posture (12/16/23) Weakness (12/16/23) Past Medical History (Last Reviewed 12/06/23 @ 18:47 by KYLIE Mendoza) Alcohol use disorder, moderate, in sustained remission Colon polyps Encounter for well adult exam with abnormal findings Fatigue Hyperlipidemia Low back pain Opioid use disorder, mild, in sustained remission, on maintenance therapy Prediabetes Strain of left knee Testosterone deficiency Visit Care Team Role Provider Type Tomi Chavarria DO Attending Provider Physician Family Provider Primary Care Provider Referring Provider Specialty: Family Practice Address: [address] [place] [address], [facility] Email: [email or web address] Physical Therapy Initial Evaluation PT-OP-A Visit Information Start: 12/04/23 11:31 Freq: Status: Active Protocol: Document 12/16/23 13:07 [facility] (Rec: 12/16/23 17:33 [facility] [id number]) Out-Patient Physical Therapy Visit Information Visit Information Visit Type Initial Evaluation Visit Start Time 13:52 Visit Stop Time 14:36 Visit Number 1 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 His L pelvis to down leg that cause pain. No known injury. about 6 months ago pain started and got progressively worse. He was prescribed meloxicam and that helpedf or 2-3 months then it stopped working now it is progressively gettng worse faster. He tried to get a MRI but it was denied. He is doing stretches. He is doing groin stretches and that is pretty hard. Has done no other treatment. Denies injuries in adult life. 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 He is having trouble working d/t pain. Prior Treatments and Tests xrays:IMPRESSION: No acute bony abnormality. 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 IMPRESSION: Minimal early arthritic changes. Treatment Goals Patient/Caregiver Goals dec pain PT-OP-C Subjective Start: 12/04/23 11:31 Freq: Status: Active Protocol: Document 12/16/23 13:07 [facility] (Rec: 12/16/23 17:33 [facility] [id number]) Patient Questionnaires Oswestry Low Back Index Oswestry Score 27/50 OP-PT Pain Assessment Location L knee Pain Location Details ant knee Frequency Constant Pain Aggravating Factors Standing,Walking,Stair Climbing Pain Alleviating Factors Heat Other Pain Alleviating Factors ibuprofen, just the right position in bed L hip pain Pain Location Details post sup L hip Frequency Constant Pain Aggravating Factors Standing,Sitting,Walking,Stair Climbing Other Pain Aggravating Factors laying on R side,put L shoe/ sock on, carrying, yard work Pain Alleviating Factors Heat Other Pain Alleviating Factors shifts R sitting, ibuprofen, just in right position in bed PT-OP-D Balance Start: 12/04/23 11:31 Freq: Status: Active Protocol: Document 12/16/23 13:07 [facility] (Rec: 12/16/23 17:33 [facility] [id number]) Balance Tests Single Limb Standing Single Limb- Right no difficulty Single Limb- Left able to lift leg only PT-OP-G Mobility & Gait Start: 12/04/23 11:31 Freq: Status: Active Protocol: Document 12/16/23 13:07 [facility] (Rec: 12/16/23 17:33 [facility] [id number]) OP Gait Assessment Comments Gait Comments walks w/walking stick-occ carries it. dec LLE stance time w/lat lean w/LLE wt bearing PT-OP-J Posture/Palpation/Skin Start: 12/04/23 11:31 Freq: Status: Active Protocol: Document 12/16/23 13:07 [facility] (Rec: 12/16/23 17:33 [facility] [id number]) Posture Evaluation Mirta Postural Classification System Mirta Postural Classifications Posterior/Anterior Comments Posture Comments LLE turned out, pelvis shifted L, rot L PT-OP-L Special Tests Start: 12/04/23 11:31 Freq: Status: Active Protocol: Document 12/16/23 13:07 [facility] (Rec: 12/16/23 17:33 [facility] [id number]) Special Tests Lumbar Spine Special Tests leg length Test Results R leg about 1/2 in longer Slump Test Results positive L Other Special Tests Special Tests reflexes wnl B achilles and patellar tendon & B LE sensation WNL PT-OP-M Strength Start: 12/04/23 11:31 Freq: Status: Active Protocol: Document 12/16/23 13:07 [facility] (Rec: 12/16/23 17:33 [facility] [id number]) Hip Strength Hip Manual Muscle Testing Right Flexion (L2) 5 Normal Abduction 4- Good- External Rotation 5 Normal Internal Rotation 5 Normal Left Flexion (L2) 3 Fair Abduction 3 Fair External Rotation 3 Fair Internal Rotation 3 Fair Comments pain Knee Strength Knee Manual Muscle Testing Right Flexion (S2) 5 Normal Extension (L3) 5 Normal Left Flexion (S2) 4 Good Extension (L3) 4 Good Ankle/Foot Strength Ankle and Foot Manual Muscle Testing Right Dorsiflexion (L4) 5 Normal Plantarflexion (S1) 5 Normal Left Dorsiflexion (L4) 5 Normal Plantarflexion (S1) 5 Normal Comments PF tested seated B PT-OP-Q Treatments Start: 12/04/23 11:31 Freq: Status: Active Protocol: Document 12/16/23 13:07 [facility] (Rec: 12/16/23 17:33 [facility] [id number]) Self-Care/Home Management Treatment Education Other Education 9 min: edu w/normal reflexesa nd normal sensation dec chance of nerve impingment but likely radicular pain; edu that PT can help by improving alignment and mobility of spine PT-OP-T Assessment and Plan Start: 12/04/23 11:31 Freq: Status: Active Protocol: Document 12/16/23 13:07 [facility] (Rec: 12/16/23 17:33 [facility] [id number]) Physical Therapy Assessment Goals activity Short Term Goal (STG) Pt will be able to reciprocate up stairs w/o inc pain STG Duration 01/21 Ortho Tech Goal (LTG) pt will be able to don L shoes /socks w/o inc pain LTG Duration 7/16 strength Short Term Goal (STG) Pt will be indep w/HEP STG Duration 01/21 Long-Term Goal (LTG) Pt will score 5/5 BLE MMT and at least 3/5 LPM in all planes to show improved stability. LTG Duration 03/09 KENNETH Impairment 27/50 Short Term Goal (STG) Pt will improve KENNETH score to no greater than 17/50 to show improved functional ability STG Duration 01/23 Ortho Tech Goal (LTG) Pt will improve KENNETH score to no greater than 4/50 to show improved functional ability LTG Duration 03/09 Assessment Summary Assessment pt presents w/c/o L sup and lat glute/hip pain and L ant knee pain that has been signficaintly limiting his mobility for 6 months. He had a couple month improvement w/ meloxicam but after a couple months, it stopped working and since then, every week seems to keep getting worse. He is limited in his ability to do all daily activities and it limits his ability to work. He walks w/a walking stick occ for inc steadiness and has dec ability for stance time on LLE. 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 Reflexes and sensation WNL, but L hip mobility and strength are signfiicantly limited. PT to work on this including improving function and dec pain. Physical Therapy Plan Frequency and Duration Frequency of Treatment 1-2x/wk Duration of treatment (weeks) 12 Plan of Care Start Date 12/16/23 Plan of Care End Date 03/09/24 Therapeutic Interventions Therapeutic Interventions Balance Training,Gait Training ,Home Exercise Program,Joint Mobilizations,Manual Therapy, Neuromuscular Re-education, Orthotic/Prosthetic Management ,Patient/Caregiver Education, Self-Care/Home Management,Soft Tissue Mobilization,Taping, Therapeutic Activities, Therapeutic Exercises Modalities Cold Pack/Ice Massage,Electric Stimulation,Hot Packs, Traction- Mechanical, Ultrasound Next Visit Focus/Plan Next Note Type Treatment Note Next Visit Plan check spine ROM work on hip jt and innominate mobilizations to improve mobility, gentle core and hip mobility exercises as tolerated
--- NOTE | 2023-12-16 17:33 | PT.OPPOC ---
Physical, Occupational & Speech Therapy At [facility] Current Diagnoses Pain in left hip (12/16/23) Pain in left knee (12/16/23) Low back pain, unspecified (12/16/23) Abnormal posture (12/16/23) Weakness (12/16/23) Visit Care Team Role Provider Type Tomi Chavarria DO Attending Provider Physician Family Provider Primary Care Provider Referring Provider Specialty: Family Practice Address: [address] [place] [address], [facility] Email: [email or web address] Plan Of Care PT-OP-T Assessment and Plan Start: 12/04/23 11:31 Freq: Status: Active Protocol: Document 12/16/23 13:07 [facility] (Rec: 12/16/23 17:33 [facility] [id number]) Physical Therapy Assessment Goals activity Short Term Goal (STG) Pt will be able to reciprocate up stairs w/o inc pain STG Duration 01/21 House Fellow Goal (LTG) pt will be able to don L shoes /socks w/o inc pain LTG Duration 03/09 strength Short Term Goal (STG) Pt will be indep w/HEP STG Duration 01/21 Custodial Goal (LTG) Pt will score 5/5 BLE MMT and at least 3/5 LPM in all planes to show improved stability. LTG Duration 03/09 KENNETH Impairment 27/50 Short Term Goal (STG) Pt will improve KENNETH score to no greater than 17/50 to show improved functional ability STG Duration 01/23 Custodial Goal (LTG) Pt will improve KENNETH score to no greater than 4/50 to show improved functional ability LTG Duration 03/09 Assessment Summary Assessment pt presents w/c/o L sup and lat glute/hip pain and L ant knee pain that has been signficaintly limiting his mobility for 6 months. He had a couple month improvement w/ meloxicam but after a couple months, it stopped working and since then, every week seems to keep getting worse. He is limited in his ability to do all daily activities and it limits his ability to work. He walks w/a walking stick occ for inc steadiness and has dec ability for stance time on LLE. 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 Reflexes and sensation WNL, but L hip mobility and strength are signfiicantly limited. PT to work on this including improving function and dec pain. Physical Therapy Plan Frequency and Duration Frequency of Treatment 1-2x/wk Duration of treatment (weeks) 12 Plan of Care Start Date 12/16/23 Plan of Care End Date 03/09/24 Therapeutic Interventions Therapeutic Interventions Balance Training,Gait Training ,Home Exercise Program,Joint Mobilizations,Manual Therapy, Neuromuscular Re-education, Orthotic/Prosthetic Management ,Patient/Caregiver Education, Self-Care/Home Management,Soft Tissue Mobilization,Taping, Therapeutic Activities, Therapeutic Exercises Modalities Cold Pack/Ice Massage,Electric Stimulation,Hot Packs, Traction- Mechanical, Ultrasound Next Visit Focus/Plan Next Note Type Treatment Note Next Visit Plan check spine ROM work on hip jt and innominate mobilizations to improve mobility, gentle core and hip mobility exercises as tolerated Plan of Care Dates Plan of Care Start Date 12/16/23 Plan of Care End Date 03/09/24 Electronically Signed by: Ashley Lua, PT 12/16/23 [id number] If you are in agreement with this Plan of Care, please return a signed and dated copy. I have reviewed this Plan of Care and certify that the skilled therapy services above are required to meet the patient?s needs. Physician Signature Date Printed Name and Credentials Clinical Instructor Signature Printed Name and Credentials
--- NOTE | 2023-12-18 16:15 | PT.OTN ---
Current Diagnoses Pain in left hip (12/18/23) Pain in left knee (12/18/23) Low back pain, unspecified (12/18/23) Abnormal posture (12/18/23) Weakness (12/18/23) Physical Therapy Treatment Note PT-OP-A Visit Information Start: 12/04/23 11:31 Freq: Status: Active Protocol: Document 12/18/23 13:11 [facility] (Rec: 12/18/23 13:49 [facility] [id number]) Out-Patient Physical Therapy Visit Information Visit Information Visit Type Treatment Note Visit Start Time 09:50 Visit Stop Time 10:30 Visit Number 2 Number of FLIGHT NURSE Visits 0 PT-OP-B Current Condition Start: 12/04/23 11:31 Freq: Status: Active Protocol: Document 12/16/23 13:07 [facility] (Rec: 12/16/23 17:33 [facility] [id number]) Current Condition History of Current Condition Onset Date 6 months ago Current Complaints L hip pain and knee pain History of Current Condition Pt reports pain in L hip to L knee and doctor thinks it is a nerve from his back. His L pelvis to down leg that cause pain. No known injury. about 6 months ago pain started and got progressively worse. He was prescribed meloxicam and that helpedf or 2-3 months then it stopped working now it is progressively gettng worse faster. He tried to get a MRI but it was denied. He is doing stretches. He is doing groin stretches and that is pretty hard. Has done no other treatment. Denies injuries in adult life. 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 He is having trouble working d/t pain. Prior Treatments and Tests xrays:IMPRESSION: No acute bony abnormality. 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 IMPRESSION: Minimal early arthritic changes. Treatment Goals Patient/Caregiver Goals dec pain PT-OP-C Subjective Start: 12/04/23 11:31 Freq: Status: Active Protocol: Document 12/18/23 13:11 [facility] (Rec: 12/18/23 13:49 [facility] [id number]) OP-PT Subjective Patient Comments Patient Comments Pt reports he had to do a lot of work on boats yesterday and notes inc pain today in both hip and knee PT-OP-D Balance Start: 12/04/23 11:31 Freq: Status: Active Protocol: Document 12/16/23 13:07 [facility] (Rec: 12/16/23 17:33 [facility] [id number]) Balance Tests Single Limb Standing Single Limb- Right no difficulty Single Limb- Left able to lift leg only PT-OP-G Mobility & Gait Start: 12/04/23 11:31 Freq: Status: Active Protocol: Document 12/16/23 13:07 [facility] (Rec: 12/16/23 17:33 [facility] [id number]) OP Gait Assessment Comments Gait Comments walks w/walking stick-occ carries it. dec LLE stance time w/lat lean w/LLE wt bearing PT-OP-J Posture/Palpation/Skin Start: 12/04/23 11:31 Freq: Status: Active Protocol: Document 12/16/23 13:07 [facility] (Rec: 12/16/23 17:33 [facility] [id number]) Posture Evaluation [facility] Postural Classification System Mirta Postural Classifications Posterior/Anterior Comments Posture Comments LLE turned out, pelvis shifted L, rot L PT-OP-K Range of Motion Start: 12/04/23 11:31 Freq: Status: Active Protocol: Document 12/18/23 13:11 [facility] (Rec: 12/18/23 16:15 [facility] [id number]) Lumbar Spine Range of Motion Lumbar Spine Active Percentage Flexion 80 Extension 75 Rotation Left 60 Rotation Right 60 Lateral Flexion Left 60 Lateral Flexion Right 90 Comments pain hip w/B rot, L SB, flex, ext PT-OP-L Special Tests Start: 12/04/23 11:31 Freq: Status: Active Protocol: Document 12/16/23 13:07 [facility] (Rec: 12/16/23 17:33 [facility] [id number]) Special Tests Lumbar Spine Special Tests leg length Test Results R leg about 1/2 in longer Slump Test Results positive L Other Special Tests Special Tests reflexes wnl B achilles and patellar tendon & B LE sensation WNL PT-OP-M Strength Start: 12/04/23 11:31 Freq: Status: Active Protocol: Document 12/16/23 13:07 [facility] (Rec: 12/16/23 17:33 [facility] [id number]) Hip Strength Hip Manual Muscle Testing Right Flexion (L2) 5 Normal Abduction 4- Good- External Rotation 5 Normal Internal Rotation 5 Normal Left Flexion (L2) 3 Fair Abduction 3 Fair External Rotation 3 Fair Internal Rotation 3 Fair Comments pain Knee Strength Knee Manual Muscle Testing Right Flexion (S2) 5 Normal Extension (L3) 5 Normal Left Flexion (S2) 4 Good Extension (L3) 4 Good Ankle/Foot Strength Ankle and Foot Manual Muscle Testing Right Dorsiflexion (L4) 5 Normal Plantarflexion (S1) 5 Normal Left Dorsiflexion (L4) 5 Normal Plantarflexion (S1) 5 Normal Comments PF tested seated B PT-OP-Q Treatments Start: 12/04/23 11:31 Freq: Status: Active Protocol: Document 12/18/23 13:11 [facility] (Rec: 12/18/23 13:49 [facility] [id number]) Therapeutic Exercises Supine Exercises hip rot Supine Exercise Name 1. straight leg 2. bent knee Side left Reps/Minutes 10 ea Comments small range comfortable pelvic tilts Reps/Minutes 6 Sitting Exercises rot Sitting Exercise Name trunk Side bilateral Reps/Minutes 8 ea Comments comfortable range pelvic tilts Reps/Minutes 8 Manual Therapy Treatment Soft Tissue Mobilization hip Body Location L ITB, TFL, lat glute, add Mobilization Type Rolling Intensity/Depth Moderate Comments s/l, sup, hooklying Joint Mobilizations tibfem Joint L PA hip Comments L inf & free the ball ER and IR lumbar Comments L3 L upglide FM PT-OP-T Assessment and Plan Start: 12/04/23 11:31 Freq: Status: Active Protocol: Document 12/18/23 13:11 [facility] (Rec: 12/18/23 13:49 [facility] [id number]) Physical Therapy Assessment Goals activity Short Term Goal (STG) Pt will be able to reciprocate up stairs w/o inc pain STG Duration 01/21 Snf Goal (LTG) pt will be able to don L shoes /socks w/o inc pain LTG Duration 03/09 strength Short Term Goal (STG) Pt will be indep w/HEP STG Duration 01/21 Traffic Recorder Goal (LTG) Pt will score 5/5 BLE MMT and at least 3/5 LPM in all planes to show improved stability. LTG Duration 03/09 KENNETH Impairment 27/50 Short Term Goal (STG) Pt will improve KENNETH score to no greater than 17/50 to show improved functional ability STG Duration 01/23 Snf Goal (LTG) Pt will improve KENNETH score to no greater than 4/50 to show improved functional ability LTG Duration 03/09 Assessment Summary Assessment Pt had dec pain w/manual on hip. He does appears ot have pain related to lumbar spine as w/ROM did note pain in L hip and/or knee w/R SB and B rot and flex. SLR more comfortable w/hip than hip flex Physical Therapy Plan Frequency and Duration Frequency of Treatment 1-2x/wk Duration of treatment (weeks) 12 Plan of Care Start Date 12/16/23 Plan of Care End Date 03/09/24 Next Visit Focus/Plan Next Note Type Treatment Note Next Visit Plan work on hip jt and innominate mobilizations to improve mobility, gentle core and hip mobility exercises as tolerated
--- NOTE | 2023-12-23 12:44 | PT.OTN ---
Current Diagnoses Pain in left hip (12/23/23) Pain in left knee (12/23/23) Low back pain, unspecified (12/23/23) Abnormal posture (12/23/23) Weakness (12/23/23) Physical Therapy Treatment Note PT-OP-A Visit Information Start: 12/04/23 11:31 Freq: Status: Active Protocol: Document 12/23/23 08:52 [facility] (Rec: 12/23/23 12:43 [facility] [id number]) Out-Patient Physical Therapy Visit Information Visit Information Visit Type Treatment Note Visit Note Visit [email or web address] Access Code: [email or web address] Visit Start Time 09:00 Visit Stop Time 09:46 Visit Number 3 Number of SURFACE PLATE INSPECTOR Visits 1 PT-OP-B Current Condition Start: 12/04/23 11:31 Freq: Status: Active Protocol: Document 12/16/23 13:07 [facility] (Rec: 12/16/23 17:33 [facility] [id number]) Current Condition History of Current Condition Onset Date 6 months ago Current Complaints L hip pain and knee pain History of Current Condition Pt reports pain in L hip to L knee and doctor thinks it is a nerve from his back. His L pelvis to down leg that cause pain. No known injury. about 6 months ago pain started and got progressively worse. He was prescribed meloxicam and that helpedf or 2-3 months then it stopped working now it is progressively gettng worse faster. He tried to get a MRI but it was denied. He is doing stretches. He is doing groin stretches and that is pretty hard. Has done no other treatment. Denies injuries in adult life. 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 He is having trouble working d/t pain. Prior Treatments and Tests xrays:IMPRESSION: No acute bony abnormality. 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 IMPRESSION: Minimal early arthritic changes. Treatment Goals Patient/Caregiver Goals dec pain PT-OP-C Subjective Start: 12/04/23 11:31 Freq: Status: Active Protocol: Document 12/23/23 08:52 [facility] (Rec: 12/23/23 12:43 [facility] [id number]) OP-PT Subjective Patient Comments Patient Comments Patient reports he is less sore today compared to previous session. Pt transfers sit to stand with UE use weight shifted right, ambulates with antalgic gait weight shifted right, reports pain 3-4/10 left hip and knee. right AI left PI PT-OP-D Balance Start: 12/04/23 11:31 Freq: Status: Active Protocol: Document 12/16/23 13:07 [facility] (Rec: 12/16/23 17:33 [facility] [id number]) Balance Tests Single Limb Standing Single Limb- Right no difficulty Single Limb- Left able to lift leg only PT-OP-G Mobility & Gait Start: 12/04/23 11:31 Freq: Status: Active Protocol: Document 12/16/23 13:07 [facility] (Rec: 12/16/23 17:33 [facility] [id number]) OP Gait Assessment Comments Gait Comments walks w/walking stick-occ carries it. dec LLE stance time w/lat lean w/LLE wt bearing PT-OP-J Posture/Palpation/Skin Start: 12/04/23 11:31 Freq: Status: Active Protocol: Document 12/16/23 13:07 [facility] (Rec: 12/16/23 17:33 [facility] [id number]) Posture Evaluation [facility] Postural Classification System Mirta Postural Classifications Posterior/Anterior Comments Posture Comments LLE turned out, pelvis shifted L, rot L PT-OP-K Range of Motion Start: 12/04/23 11:31 Freq: Status: Active Protocol: Document 12/18/23 13:11 [facility] (Rec: 12/18/23 16:15 [facility] [id number]) Lumbar Spine Range of Motion Lumbar Spine Active Percentage Flexion 80 Extension 75 Rotation Left 60 Rotation Right 60 Lateral Flexion Left 60 Lateral Flexion Right 90 Comments pain hip w/B rot, L SB, flex, ext PT-OP-L Special Tests Start: 12/04/23 11:31 Freq: Status: Active Protocol: Document 12/16/23 13:07 [facility] (Rec: 12/16/23 17:33 [facility] [id number]) Special Tests Lumbar Spine Special Tests leg length Test Results R leg about 1/2 in longer Slump Test Results positive L Other Special Tests Special Tests reflexes wnl B achilles and patellar tendon & B LE sensation WNL PT-OP-M Strength Start: 12/04/23 11:31 Freq: Status: Active Protocol: Document 12/16/23 13:07 [facility] (Rec: 12/16/23 17:33 [facility] [id number]) Hip Strength Hip Manual Muscle Testing Right Flexion (L2) 5 Normal Abduction 4- Good- External Rotation 5 Normal Internal Rotation 5 Normal Left Flexion (L2) 3 Fair Abduction 3 Fair External Rotation 3 Fair Internal Rotation 3 Fair Comments pain Knee Strength Knee Manual Muscle Testing Right Flexion (S2) 5 Normal Extension (L3) 5 Normal Left Flexion (S2) 4 Good Extension (L3) 4 Good Ankle/Foot Strength Ankle and Foot Manual Muscle Testing Right Dorsiflexion (L4) 5 Normal Plantarflexion (S1) 5 Normal Left Dorsiflexion (L4) 5 Normal Plantarflexion (S1) 5 Normal Comments PF tested seated B PT-OP-Q Treatments Start: 12/04/23 11:31 Freq: Status: Active Protocol: Document 12/23/23 08:52 [facility] (Rec: 12/23/23 12:43 [facility] [id number]) Therapeutic Exercises Supine Exercises knee to chest with towel roll Side left Reps/Minutes X2 X 60 seconds Comments reports dec pinching with towel rol vs knee to chest w/o roll Modified Rip stretch Side bilateral Reps/Minutes 1X each LE Sitting Exercises seated IR and ER hip AROM Reps/Minutes X10 Comments verbal cues Standing Exercises sit to stand Side bilateral Reps/Minutes X5 Comments performed as and exercise post training, reviewed hip hinge Therapeutic Activity Therapeutic Activity sit to stand Reps/Minutes X4 Comments Pt ed use of self tactile cues for hip hinge, and to equalize weight shift supine to sit Reps/Minutes X3 Comments verbal cues for log roll Manual Therapy Treatment Soft Tissue Mobilization LS paraspinals Body Location left Mobilization Type Sustained Pressure Intensity/Depth Moderate Body Position Sidelying hip Body Location left glute and hip flexor Mobilization Type Rolling Intensity/Depth Moderate Body Position Sidelying Comments and hooklying Manual Techniques contract relax into left hip IR and ER Reps/Duration X2 each MET for right AI left PI and pubic shotgun Reps/Duration 6X 6 each PT-OP-T Assessment and Plan Start: 12/04/23 11:31 Freq: Status: Active Protocol: Document 12/23/23 08:52 [facility] (Rec: 12/23/23 12:43 [facility] [id number]) Physical Therapy Assessment Goals activity Short Term Goal (STG) Pt will be able to reciprocate up stairs w/o inc pain STG Duration 01/21 Half-Way Goal (LTG) pt will be able to don L shoes /socks w/o inc pain LTG Duration 03/09 strength Short Term Goal (STG) Pt will be indep w/HEP STG Duration 01/21 Travel Attendants Goal (LTG) Pt will score 5/5 BLE MMT and at least 3/5 LPM in all planes to show improved stability. LTG Duration 03/09 KENNETH Impairment 27/50 Short Term Goal (STG) Pt will improve KENNETH score to no greater than 17/50 to show improved functional ability STG Duration 01/23 Travel Attendants Goal (LTG) Pt will improve KENNETH score to no greater than 4/50 to show improved functional ability LTG Duration 03/09 Assessment Summary Assessment Patient reports walking better . Observable decrease in antalgic gait pattern ambulating out of session without device. Physical Therapy Plan Frequency and Duration Frequency of Treatment 1-2x/wk Duration of treatment (weeks) 12 Plan of Care Start Date 12/16/23 Plan of Care End Date 03/09/24 Next Visit Focus/Plan Next Note Type Treatment Note Next Visit Plan work on hip jt and innominate mobilizations to improve mobility, gentle core/bent knee fall out and hip mobility exercises as tolerated
--- NOTE | 2023-12-25 09:51 | PT.OTN ---
Current Diagnoses Pain in left hip (12/25/23) Pain in left knee (12/25/23) Low back pain, unspecified (12/25/23) Abnormal posture (12/25/23) Weakness (12/25/23) Physical Therapy Treatment Note PT-OP-A Visit Information Start: 12/04/23 11:31 Freq: Status: Active Protocol: Document 12/25/23 09:06 [facility] (Rec: 12/25/23 09:51 [facility] [id number]) Out-Patient Physical Therapy Visit Information Visit Information Visit Type Treatment Note Visit Note Visit [email or web address] Access Code: [email or web address] Visit Start Time 09:05 Visit Stop Time 09:45 Visit Number 4 Number of SALES SUPPORT REPRESENTATIVE Visits 0 PT-OP-B Current Condition Start: 12/04/23 11:31 Freq: Status: Active Protocol: Document 12/16/23 13:07 [facility] (Rec: 12/16/23 17:33 [facility] [id number]) Current Condition History of Current Condition Onset Date 6 months ago Current Complaints L hip pain and knee pain History of Current Condition Pt reports pain in L hip to L knee and doctor thinks it is a nerve from his back. His L pelvis to down leg that cause pain. No known injury. about 6 months ago pain started and got progressively worse. He was prescribed meloxicam and that helpedf or 2-3 months then it stopped working now it is progressively gettng worse faster. He tried to get a MRI but it was denied. He is doing stretches. He is doing groin stretches and that is pretty hard. Has done no other treatment. Denies injuries in adult life. 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 He is having trouble working d/t pain. Prior Treatments and Tests xrays:IMPRESSION: No acute bony abnormality. 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 IMPRESSION: Minimal early arthritic changes. Treatment Goals Patient/Caregiver Goals dec pain PT-OP-C Subjective Start: 12/04/23 11:31 Freq: Status: Active Protocol: Document 12/25/23 09:06 [facility] (Rec: 12/25/23 09:51 [facility] [id number]) OP-PT Subjective Patient Comments Patient Comments Pt reports he has noticed he drags his foot soemtimes. Notes some soreness after last session but felt it was helpful. wokring on wt bearing into LLE PT-OP-D Balance Start: 12/04/23 11:31 Freq: Status: Active Protocol: Document 12/16/23 13:07 [facility] (Rec: 12/16/23 17:33 [facility] [id number]) Balance Tests Single Limb Standing Single Limb- Right no difficulty Single Limb- Left able to lift leg only PT-OP-G Mobility & Gait Start: 12/04/23 11:31 Freq: Status: Active Protocol: Document 12/16/23 13:07 [facility] (Rec: 12/16/23 17:33 [facility] [id number]) OP Gait Assessment Comments Gait Comments walks w/walking stick-occ carries it. dec LLE stance time w/lat lean w/LLE wt bearing PT-OP-J Posture/Palpation/Skin Start: 12/04/23 11:31 Freq: Status: Active Protocol: Document 12/16/23 13:07 [facility] (Rec: 12/16/23 17:33 [facility] [id number]) Posture Evaluation [facility] Postural Classification System [facility] Postural Classifications Posterior/Anterior Comments Posture Comments LLE turned out, pelvis shifted L, rot L PT-OP-K Range of Motion Start: 12/04/23 11:31 Freq: Status: Active Protocol: Document 12/18/23 13:11 [facility] (Rec: 12/18/23 16:15 [facility] [id number]) Lumbar Spine Range of Motion Lumbar Spine Active Percentage Flexion 80 Extension 75 Rotation Left 60 Rotation Right 60 Lateral Flexion Left 60 Lateral Flexion Right 90 Comments pain hip w/B rot, L SB, flex, ext PT-OP-L Special Tests Start: 12/04/23 11:31 Freq: Status: Active Protocol: Document 12/16/23 13:07 [facility] (Rec: 12/16/23 17:33 [facility] [id number]) Special Tests Lumbar Spine Special Tests leg length Test Results R leg about 1/2 in longer Slump Test Results positive L Other Special Tests Special Tests reflexes wnl B achilles and patellar tendon & B LE sensation WNL PT-OP-M Strength Start: 12/04/23 11:31 Freq: Status: Active Protocol: Document 12/16/23 13:07 [facility] (Rec: 12/16/23 17:33 [facility] [id number]) Hip Strength Hip Manual Muscle Testing Right Flexion (L2) 5 Normal Abduction 4- Good- External Rotation 5 Normal Internal Rotation 5 Normal Left Flexion (L2) 3 Fair Abduction 3 Fair External Rotation 3 Fair Internal Rotation 3 Fair Comments pain Knee Strength Knee Manual Muscle Testing Right Flexion (S2) 5 Normal Extension (L3) 5 Normal Left Flexion (S2) 4 Good Extension (L3) 4 Good Ankle/Foot Strength Ankle and Foot Manual Muscle Testing Right Dorsiflexion (L4) 5 Normal Plantarflexion (S1) 5 Normal Left Dorsiflexion (L4) 5 Normal Plantarflexion (S1) 5 Normal Comments PF tested seated B PT-OP-Q Treatments Start: 12/04/23 11:31 Freq: Status: Active Protocol: Document 12/25/23 09:06 [facility] (Rec: 12/25/23 09:51 [facility] [id number]) Therapeutic Exercises Supine Exercises stretch Supine Exercise Name HS Side bilateral Reps/Minutes 2 min total Manual Therapy Treatment Soft Tissue Mobilization LS paraspinals Body Location left paraspinals and ql Mobilization Type Sustained Pressure Intensity/Depth Moderate Body Position Sidelying Comments w/post dep hip Body Location left glute and hip flexor, TFL & add Mobilization Type Rolling Intensity/Depth Moderate Body Position Sidelying Comments and hooklying Joint Mobilizations innominate Comments L add FM s/l w/post dep hip Comments L inf & free the ball ER and IR lumbar Comments gapping L5-s1; L4-5 s/l FM w/ post dep Neuro Re-Education Treatment Other Activities wt shift Comments to L x10 w/rail cues for glute engagement L facilitation Comments 1.post dep rhythmic iniaition L s/l 2.L traction facilitaiton seated for wt acceptance LLE. mult sustained holds PT-OP-T Assessment and Plan Start: 12/04/23 11:31 Freq: Status: Active Protocol: Document 12/25/23 09:06 [facility] (Rec: 12/25/23 09:51 [facility] [id number]) Physical Therapy Assessment Goals activity Short Term Goal (STG) Pt will be able to reciprocate up stairs w/o inc pain STG Duration 530 Glass Laminating Operator Goal (LTG) pt will be able to don L shoes /socks w/o inc pain LTG Duration 7/16 strength Short Term Goal (STG) Pt will be indep w/HEP STG Duration 5/30 Glass Laminating Operator Goal (LTG) Pt will score 5/5 BLE MMT and at least 3/5 LPM in all planes to show improved stability. LTG Duration 03/09 KENNETH Impairment 27/50 Short Term Goal (STG) Pt will improve KENNETH score to no greater than 17/50 to show improved functional ability STG Duration 01/23 Fdc Goal (LTG) Pt will improve KENNETH score to no greater than 4/50 to show improved functional ability LTG Duration 03/09 Assessment Summary Assessment Pt reports relief w/manual especially lat glide for IR. He has improved flex and ER after treatment. Still limited though along with dec strength and facilitation of LLE Physical Therapy Plan Frequency and Duration Frequency of Treatment 1-2x/wk Duration of treatment (weeks) 12 Plan of Care Start Date 12/16/23 Plan of Care End Date 03/09/24 Next Visit Focus/Plan Next Note Type Treatment Note Next Visit Plan review wt shifts, work on LLE wt acceptancework on hip jt and innominate mobilizations to improve mobility, gentle core/bent knee fall out and hip mobility exercises as tolerated
--- NOTE | 2023-12-29 12:43 | PT.OTN ---
Current Diagnoses Pain in left hip (12/29/23) Pain in left knee (12/29/23) Low back pain, unspecified (12/29/23) Abnormal posture (12/29/23) Weakness (12/29/23) Physical Therapy Treatment Note PT-OP-A Visit Information Start: 12/04/23 11:31 Freq: Status: Active Protocol: Document 12/29/23 09:33 AB (Rec: 12/29/23 12:43 AB [id number]) Out-Patient Physical Therapy Visit Information Visit Information Visit Type Treatment Note Visit Note Visit [email or web address] Access Code: [email or web address] Visit Start Time 10:33 Visit Stop Time 11:17 Visit Number 5 Number of BUTCHER SCULLION Visits 1 PT-OP-B Current Condition Start: 12/04/23 11:31 Freq: Status: Active Protocol: Document 12/16/23 13:07 [facility] (Rec: 12/16/23 17:33 [facility] [id number]) Current Condition History of Current Condition Onset Date 6 months ago Current Complaints L hip pain and knee pain History of Current Condition Pt reports pain in L hip to L knee and doctor thinks it is a nerve from his back. His L pelvis to down leg that cause pain. No known injury. about 6 months ago pain started and got progressively worse. He was prescribed meloxicam and that helpedf or 2-3 months then it stopped working now it is progressively gettng worse faster. He tried to get a MRI but it was denied. He is doing stretches. He is doing groin stretches and that is pretty hard. Has done no other treatment. Denies injuries in adult life. 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 He is having trouble working d/t pain. Prior Treatments and Tests xrays:IMPRESSION: No acute bony abnormality. 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 IMPRESSION: Minimal early arthritic changes. Treatment Goals Patient/Caregiver Goals dec pain PT-OP-C Subjective Start: 12/04/23 11:31 Freq: Status: Active Protocol: Document 12/29/23 09:33 AB (Rec: 12/29/23 12:43 AB [id number]) OP-PT Subjective Patient Comments Patient Comments Patient reports he has more movement, but is more sore. Patient reports he does not have enough strength in the left left left to go up stairs with it. PT-OP-D Balance Start: 12/04/23 11:31 Freq: Status: Active Protocol: Document 12/16/23 13:07 [facility] (Rec: 12/16/23 17:33 [facility] [id number]) Balance Tests Single Limb Standing Single Limb- Right no difficulty Single Limb- Left able to lift leg only PT-OP-G Mobility & Gait Start: 12/04/23 11:31 Freq: Status: Active Protocol: Document 12/16/23 13:07 [facility] (Rec: 12/16/23 17:33 [facility] [id number]) OP Gait Assessment Comments Gait Comments walks w/walking stick-occ carries it. dec LLE stance time w/lat lean w/LLE wt bearing PT-OP-J Posture/Palpation/Skin Start: 12/04/23 11:31 Freq: Status: Active Protocol: Document 12/16/23 13:07 [facility] (Rec: 12/16/23 17:33 [facility] [id number]) Posture Evaluation [facility] Postural Classification System [facility] Postural Classifications Posterior/Anterior Comments Posture Comments LLE turned out, pelvis shifted L, rot L PT-OP-K Range of Motion Start: 12/04/23 11:31 Freq: Status: Active Protocol: Document 12/18/23 13:11 [facility] (Rec: 12/18/23 16:15 [facility] [id number]) Lumbar Spine Range of Motion Lumbar Spine Active Percentage Flexion 80 Extension 75 Rotation Left 60 Rotation Right 60 Lateral Flexion Left 60 Lateral Flexion Right 90 Comments pain hip w/B rot, L SB, flex, ext PT-OP-L Special Tests Start: 12/04/23 11:31 Freq: Status: Active Protocol: Document 12/16/23 13:07 [facility] (Rec: 12/16/23 17:33 [facility] [id number]) Special Tests Lumbar Spine Special Tests leg length Test Results R leg about 1/2 in longer Slump Test Results positive L Other Special Tests Special Tests reflexes wnl B achilles and patellar tendon & B LE sensation WNL PT-OP-M Strength Start: 12/04/23 11:31 Freq: Status: Active Protocol: Document 12/16/23 13:07 [facility] (Rec: 12/16/23 17:33 [facility] [id number]) Hip Strength Hip Manual Muscle Testing Right Flexion (L2) 5 Normal Abduction 4- Good- External Rotation 5 Normal Internal Rotation 5 Normal Left Flexion (L2) 3 Fair Abduction 3 Fair External Rotation 3 Fair Internal Rotation 3 Fair Comments pain Knee Strength Knee Manual Muscle Testing Right Flexion (S2) 5 Normal Extension (L3) 5 Normal Left Flexion (S2) 4 Good Extension (L3) 4 Good Ankle/Foot Strength Ankle and Foot Manual Muscle Testing Right Dorsiflexion (L4) 5 Normal Plantarflexion (S1) 5 Normal Left Dorsiflexion (L4) 5 Normal Plantarflexion (S1) 5 Normal Comments PF tested seated B PT-OP-Q Treatments Start: 12/04/23 11:31 Freq: Status: Active Protocol: Document 12/29/23 09:33 AB (Rec: 12/29/23 12:43 AB [id number]) Therapeutic Exercises Supine Exercises abdominal bracing Supine Exercise Name bent knee fall out, and heel slide Reps/Minutes X5 each LE each exercise Comments verbal cues to brace as LE moves away from core stretch Supine Exercise Name piriformis and figure 4 Side left Reps/Minutes one min each Modified Rip stretch Side left Reps/Minutes X1 15 sec X 1 60 sec Manual Therapy Treatment Soft Tissue Mobilization LS paraspinals Body Location left paraspinals Mobilization Type Sustained Pressure Intensity/Depth Moderate Body Position Sidelying hip Body Location glute/piriformis and hip flexor Mobilization Type Cross-Friction,Rolling Intensity/Depth Moderate Body Position Sidelying Comments and hooklying Joint Mobilizations hip Joint left hip Direction inf and lat Grade III Body Position Hooklying Reps/Duration X10 X 3 each Taping kinesiotaping for pain and posture Body Location SI to lower thoracic Treatment Focus pain and posture Type of Tape Kinesiotape Skin Inspection WNL Comments Patient ed to remove tape in 3 -5 days or immediately if skin irritation occurs. Manual Techniques MET for right AI left PI and pubic shotgun Reps/Duration 6X 6 each Self-Care/Home Management Treatment Activities Self-Care/Home Management Activities abdominal bracing with heel slide added to HEP PT-OP-T Assessment and Plan Start: 12/04/23 11:31 Freq: Status: Active Protocol: Document 12/29/23 09:33 AB (Rec: 12/29/23 12:43 AB [id number]) Physical Therapy Assessment Goals activity Short Term Goal (STG) Pt will be able to reciprocate up stairs w/o inc pain STG Duration 01/21 Usp Goal (LTG) pt will be able to don L shoes /socks w/o inc pain LTG Duration 03/09 strength Short Term Goal (STG) Pt will be indep w/HEP STG Duration 01/21 Usp Goal (LTG) Pt will score 5/5 BLE MMT and at least 3/5 LPM in all planes to show improved stability. LTG Duration 03/09 KENNETH Impairment 27/50 Short Term Goal (STG) Pt will improve KENNETH score to no greater than 17/50 to show improved functional ability STG Duration 01/23 Usp Goal (LTG) Pt will improve KENNETH score to no greater than 4/50 to show improved functional ability LTG Duration 03/09 Assessment Summary Assessment Patient reports feeling a little better end of session, reports having more mobility. Patient into session with complaints of left LE is getting weaker, and plans to contact MD regarding this concern. Physical Therapy Plan Frequency and Duration Frequency of Treatment 1-2x/wk Duration of treatment (weeks) 12 Plan of Care Start Date 12/16/23 Plan of Care End Date 03/09/24 Therapeutic Interventions Therapeutic Interventions Balance Training,Gait Training ,Home Exercise Program,Joint Mobilizations,Manual Therapy, Neuromuscular Re-education, Orthotic/Prosthetic Management ,Patient/Caregiver Education, Self-Care/Home Management,Soft Tissue Mobilization,Taping, Therapeutic Activities, Therapeutic Exercises Modalities Cold Pack/Ice Massage,Electric Stimulation,Hot Packs, Traction- Mechanical, Ultrasound Next Visit Focus/Plan Next Note Type Treatment Note Next Visit Plan Assess tolerance to taping, add bent knee fall out to HEP, possibly Pallof press eventually seated on ball. next session review wt shifts, work on LLE wt acceptancework on hip jt and innominate mobilizations to improve mobility, gentle core/bent knee fall out and hip mobility exercises as tolerated
--- NOTE | 2024-01-07 09:47 | PT.OTN ---
Current Diagnoses Pain in left hip (01/07/24) Pain in left knee (01/07/24) Low back pain, unspecified (01/07/24) Abnormal posture (01/07/24) Weakness (01/07/24) Physical Therapy Treatment Note PT-OP-A Visit Information Start: 12/04/23 11:31 Freq: Status: Active Protocol: Document 01/07/24 09:07 SP (Rec: 01/07/24 10:11 SP [id number]) Out-Patient Physical Therapy Visit Information Visit Information Visit Type Treatment Note Visit Start Time 09:07 Visit Stop Time 09:47 Visit Number 5 Number of FELTER TENNIS BALLS Visits 2 PT-OP-B Current Condition Start: 12/04/23 11:31 Freq: Status: Active Protocol: Document 12/16/23 13:07 [facility] (Rec: 12/16/23 17:33 [facility] [id number]) Current Condition History of Current Condition Onset Date 6 months ago Current Complaints L hip pain and knee pain History of Current Condition Pt reports pain in L hip to L knee and doctor thinks it is a nerve from his back. His L pelvis to down leg that cause pain. No known injury. about 6 months ago pain started and got progressively worse. He was prescribed meloxicam and that helpedf or 2-3 months then it stopped working now it is progressively gettng worse faster. He tried to get a MRI but it was denied. He is doing stretches. He is doing groin stretches and that is pretty hard. Has done no other treatment. Denies injuries in adult life. 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 He is having trouble working d/t pain. Prior Treatments and Tests xrays:IMPRESSION: No acute bony abnormality. 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 IMPRESSION: Minimal early arthritic changes. Treatment Goals Patient/Caregiver Goals dec pain PT-OP-C Subjective Start: 12/04/23 11:31 Freq: Status: Active Protocol: Document 01/07/24 09:07 SP (Rec: 01/07/24 10:11 SP [id number]) OP-PT Subjective Patient Comments Patient Comments Pt reports the manual use strap last tx found helpful and L hip moved little more, tried to do home but not as helpful. Still having pain L hip sit to long and into WB. Finding L leg more weakness and not sure why. Is going to request MRI. Pt asked in past did testosterone shots in L hip and wondered now if could have affected issues in L hp now, but has been 6 mo since last did. PT-OP-D Balance Start: 12/04/23 11:31 Freq: Status: Active Protocol: Document 12/16/23 13:07 [facility] (Rec: 12/16/23 17:33 [facility] [id number]) Balance Tests Single Limb Standing Single Limb- Right no difficulty Single Limb- Left able to lift leg only PT-OP-G Mobility & Gait Start: 12/04/23 11:31 Freq: Status: Active Protocol: Document 12/16/23 13:07 [facility] (Rec: 12/16/23 17:33 [facility] [id number]) OP Gait Assessment Comments Gait Comments walks w/walking stick-occ carries it. dec LLE stance time w/lat lean w/LLE wt bearing PT-OP-J Posture/Palpation/Skin Start: 12/04/23 11:31 Freq: Status: Active Protocol: Document 12/16/23 13:07 [facility] (Rec: 12/16/23 17:33 [facility] [id number]) Posture Evaluation [facility] Postural Classification System [facility] Postural Classifications Posterior/Anterior Comments Posture Comments LLE turned out, pelvis shifted L, rot L PT-OP-K Range of Motion Start: 12/04/23 11:31 Freq: Status: Active Protocol: Document 12/18/23 13:11 [facility] (Rec: 12/18/23 16:15 [facility] [id number]) Lumbar Spine Range of Motion Lumbar Spine Active Percentage Flexion 80 Extension 75 Rotation Left 60 Rotation Right 60 Lateral Flexion Left 60 Lateral Flexion Right 90 Comments pain hip w/B rot, L SB, flex, ext PT-OP-L Special Tests Start: 12/04/23 11:31 Freq: Status: Active Protocol: Document 12/16/23 13:07 [facility] (Rec: 12/16/23 17:33 [facility] [id number]) Special Tests Lumbar Spine Special Tests leg length Test Results R leg about 1/2 in longer Slump Test Results positive L Other Special Tests Special Tests reflexes wnl B achilles and patellar tendon & B LE sensation WNL PT-OP-M Strength Start: 12/04/23 11:31 Freq: Status: Active Protocol: Document 12/16/23 13:07 [facility] (Rec: 12/16/23 17:33 [facility] [id number]) Hip Strength Hip Manual Muscle Testing Right Flexion (L2) 5 Normal Abduction 4- Good- External Rotation 5 Normal Internal Rotation 5 Normal Left Flexion (L2) 3 Fair Abduction 3 Fair External Rotation 3 Fair Internal Rotation 3 Fair Comments pain Knee Strength Knee Manual Muscle Testing Right Flexion (S2) 5 Normal Extension (L3) 5 Normal Left Flexion (S2) 4 Good Extension (L3) 4 Good Ankle/Foot Strength Ankle and Foot Manual Muscle Testing Right Dorsiflexion (L4) 5 Normal Plantarflexion (S1) 5 Normal Left Dorsiflexion (L4) 5 Normal Plantarflexion (S1) 5 Normal Comments PF tested seated B PT-OP-Q Treatments Start: 12/04/23 11:31 Freq: Status: Active Protocol: Document 01/07/24 09:07 SP (Rec: 01/07/24 10:11 SP [id number]) Therapeutic Exercises Supine Exercises knee to chest with towel roll Supine Exercise Name sciatic nerve glide Side left Reps/Minutes 10 AP Comments post hip mob, reported decreased anterior hip pinch- cued slow small range Modified Rip stretch Supine Exercise Name 5/15 attempted but painful hip- stopped Side left Reps/Minutes 15 sec- thigh supported by FELTER TENNIS BALLS Comments performed post manual, unable to tolerate- Hold hip rot Supine Exercise Name 1. straight leg 2. bent knee Side left Reps/Minutes 10 ea- during manual Comments small range comfortable- post manual- improved ER tolerance Gait Training Gait Activity wt shift LLE acceptance Description wt shift into LLE then few receiprocal steps Device Used 0 Distance/Duration 2-20 ft Treatment Focus LLE TKE & glut fac wt acceptance, gait phase mechanics Comments ed TKE quad & glut engagement fac heel strike into Midstance with tall posturing over LLE, improved mechanics and stability during RLE advancement end tx. Ed continue focus on mechanics to decrease anterior hip pain recruitment. Manual Therapy Treatment Soft Tissue Mobilization hip Body Location L distal PF/GlutMax, Glut Med, psoas/iliacus, prox RF, ADD Longus, TFL Mobilization Type Cross-Friction,Rolling, Sustained Pressure,Other Intensity/Depth Moderate Body Position SL & hooklying Comments manual STMs, sustained pressure MWM hip IR/ER AROM small range Joint Mobilizations innominate Joint L hip Direction lateral, anterior, long axis inferior Grade II Body Position Supine Comments supine, hooklying, L use strap sustained distraction and MWM small range AROM hip IR & ER. Instructed can support with long axis pull with good feedback PT-OP-T Assessment and Plan Start: 12/04/23 11:31 Freq: Status: Active Protocol: Document 01/07/24 09:07 SP (Rec: 01/07/24 10:11 SP [id number]) Physical Therapy Assessment Goals activity Short Term Goal (STG) Pt will be able to reciprocate up stairs w/o inc pain STG Duration 01/21 Cloth [employer]uler Goal (LTG) pt will be able to don L shoes /socks w/o inc pain LTG Duration 03/09 strength Short Term Goal (STG) Pt will be indep w/HEP STG Duration 01/21 Cloth Hauler Goal (LTG) Pt will score 5/5 BLE MMT and at least 3/5 LPM in all planes to show improved stability. LTG Duration 03/09 KENNETH Impairment 27/50 Short Term Goal (STG) Pt will improve KENNETH score to no greater than 17/50 to show improved functional ability STG Duration 01/23 Cloth Hauler Goal (LTG) Pt will improve KENNETH score to no greater than 4/50 to show improved functional ability LTG Duration 03/09 Assessment Summary Assessment Pt report pain reduction in L anterior hip, increase hip ER ROM post manual. Ed end tx for wt acceptance into LLE with TKE and glut engagement posture over stance LE. Improved mechanics WB into LLE toward more normal gait midstance phase and hip extension with cuing and be conscious aware maintain upright posturing carryover. Physical Therapy Plan Frequency and Duration Frequency of Treatment 1-2x/wk Duration of treatment (weeks) 12 Plan of Care Start Date 12/16/23 Plan of Care End Date 03/09/24 Therapeutic Interventions Therapeutic Interventions Balance Training,Gait Training ,Home Exercise Program,Joint Mobilizations,Manual Therapy, Neuromuscular Re-education, Orthotic/Prosthetic Management ,Patient/Caregiver Education, Self-Care/Home Management,Soft Tissue Mobilization,Taping, Therapeutic Activities, Therapeutic Exercises Modalities Cold Pack/Ice Massage,Electric Stimulation,Hot Packs, Traction- Mechanical, Ultrasound Next Visit Focus/Plan Next Note Type Treatment Note Next Visit Plan Ask response to manual and wt shift & gait phase end last tx carryover. POC: Assess tolerance to taping, add bent knee fall out to HEP, possibly Pallof press eventually seated on ball. next session review wt shifts, work on LLE wt acceptancework on hip jt and innominate mobilizations to improve mobility, gentle core/bent knee fall out and hip mobility exercises as tolerated
--- NOTE | 2024-01-09 10:52 | PT-OP ANOTE ---
Phoned patient, and left message regarding no show today. Message left regarding fee, discharge from therapy for 2 no shows, and next appointment time and date.
--- NOTE | 2024-01-13 19:09 | PT.OTN ---
Current Diagnoses Pain in left hip (01/13/24) Pain in left knee (01/13/24) Low back pain, unspecified (01/13/24) Abnormal posture (01/13/24) Weakness (01/13/24) Physical Therapy Treatment Note PT-OP-A Visit Information Start: 12/04/23 11:31 Freq: Status: Active Protocol: Document 01/13/24 07:29 [facility] (Rec: 01/13/24 19:09 [facility] [id number]) Out-Patient Physical Therapy Visit Information Visit Information Visit Type Treatment Note Visit Start Time 08:18 Visit Stop Time 09:00 Visit Number 6 Number of CORNETIST Visits 0 PT-OP-B Current Condition Start: 12/04/23 11:31 Freq: Status: Active Protocol: Document 12/16/23 13:07 [facility] (Rec: 12/16/23 17:33 [facility] [id number]) Current Condition History of Current Condition Onset Date 6 months ago Current Complaints L hip pain and knee pain History of Current Condition Pt reports pain in L hip to L knee and doctor thinks it is a nerve from his back. His L pelvis to down leg that cause pain. No known injury. about 6 months ago pain started and got progressively worse. He was prescribed meloxicam and that helpedf or 2-3 months then it stopped working now it is progressively gettng worse faster. He tried to get a MRI but it was denied. He is doing stretches. He is doing groin stretches and that is pretty hard. Has done no other treatment. Denies injuries in adult life. 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 He is having trouble working d/t pain. Prior Treatments and Tests xrays:IMPRESSION: No acute bony abnormality. 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 IMPRESSION: Minimal early arthritic changes. Treatment Goals Patient/Caregiver Goals dec pain PT-OP-C Subjective Start: 12/04/23 11:31 Freq: Status: Active Protocol: Document 01/13/24 07:29 [facility] (Rec: 01/13/24 19:09 [facility] [id number]) OP-PT Subjective Patient Comments Patient Comments Pt reports he has been in a lot of pain and now R leg (ant leg)and shoulder pain. 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 [place] like last session, he felt much better and was walking almost normal for a while. PT-OP-D Balance Start: 12/04/23 11:31 Freq: Status: Active Protocol: Document 12/16/23 13:07 [facility] (Rec: 12/16/23 17:33 [facility] [id number]) Balance Tests Single Limb Standing Single Limb- Right no difficulty Single Limb- Left able to lift leg only PT-OP-G Mobility & Gait Start: 12/04/23 11:31 Freq: Status: Active Protocol: Document 12/16/23 13:07 [facility] (Rec: 12/16/23 17:33 [facility] [id number]) OP Gait Assessment Comments Gait Comments walks w/walking stick-occ carries it. dec LLE stance time w/lat lean w/LLE wt bearing PT-OP-J Posture/Palpation/Skin Start: 12/04/23 11:31 Freq: Status: Active Protocol: Document 12/16/23 13:07 [facility] (Rec: 12/16/23 17:33 [facility] [id number]) Posture Evaluation [facility] Postural Classification System [facility] Postural Classifications Posterior/Anterior Comments Posture Comments LLE turned out, pelvis shifted L, rot L PT-OP-K Range of Motion Start: 12/04/23 11:31 Freq: Status: Active Protocol: Document 12/18/23 13:11 [facility] (Rec: 12/18/23 16:15 [facility] [id number]) Lumbar Spine Range of Motion Lumbar Spine Active Percentage Flexion 80 Extension 75 Rotation Left 60 Rotation Right 60 Lateral Flexion Left 60 Lateral Flexion Right 90 Comments pain hip w/B rot, L SB, flex, ext PT-OP-L Special Tests Start: 12/04/23 11:31 Freq: Status: Active Protocol: Document 12/16/23 13:07 [facility] (Rec: 12/16/23 17:33 [facility] [id number]) Special Tests Lumbar Spine Special Tests leg length Test Results R leg about 1/2 in longer Slump Test Results positive L Other Special Tests Special Tests reflexes wnl B achilles and patellar tendon & B LE sensation WNL PT-OP-M Strength Start: 12/04/23 11:31 Freq: Status: Active Protocol: Document 12/16/23 13:07 [facility] (Rec: 12/16/23 17:33 [facility] [id number]) Hip Strength Hip Manual Muscle Testing Right Flexion (L2) 5 Normal Abduction 4- Good- External Rotation 5 Normal Internal Rotation 5 Normal Left Flexion (L2) 3 Fair Abduction 3 Fair External Rotation 3 Fair Internal Rotation 3 Fair Comments pain Knee Strength Knee Manual Muscle Testing Right Flexion (S2) 5 Normal Extension (L3) 5 Normal Left Flexion (S2) 4 Good Extension (L3) 4 Good Ankle/Foot Strength Ankle and Foot Manual Muscle Testing Right Dorsiflexion (L4) 5 Normal Plantarflexion (S1) 5 Normal Left Dorsiflexion (L4) 5 Normal Plantarflexion (S1) 5 Normal Comments PF tested seated B PT-OP-Q Treatments Start: 12/04/23 11:31 Freq: Status: Active Protocol: Document 01/13/24 07:29 [facility] (Rec: 01/13/24 19:09 [facility] [id number]) Therapeutic Exercises Supine Exercises pelvic tilts Reps/Minutes 15 Comments cues for movement Sitting Exercises HS curl Side left Equipment Used L2 Reps/Minutes 10 LAQ Side left Equipment Used L2 Reps/Minutes 15 Standing Exercises march Standing Exercise Name cues core Side bilateral Reps/Minutes 10 Manual Therapy Treatment Soft Tissue Mobilization hip Body Location L iliacus, psoas proximal and distal Mobilization Type Sustained Pressure Intensity/Depth Moderate Comments w/AAROM flex Joint Mobilizations innominate Comments L flex FM tibfem Comments AP tib FM hip Comments L inf FM PT-OP-T Assessment and Plan Start: 12/04/23 11:31 Freq: Status: Active Protocol: Document 01/13/24 07:29 [facility] (Rec: 01/13/24 19:09 [facility] [id number]) Physical Therapy Assessment Goals activity Short Term Goal (STG) Pt will be able to reciprocate up stairs w/o inc pain STG Duration 01/21 Assisted Goal (LTG) pt will be able to don L shoes /socks w/o inc pain LTG Duration 03/09 strength Short Term Goal (STG) Pt will be indep w/HEP STG Duration 01/21 Optics Test Technician Goal (LTG) Pt will score 5/5 BLE MMT and at least 3/5 LPM in all planes to show improved stability. LTG Duration 03/09 KENNETH Impairment 27/50 Short Term Goal (STG) Pt will improve KENNETH score to no greater than 17/50 to show improved functional ability STG Duration 01/23 Assisted Goal (LTG) Pt will improve KENNETH score to no greater than 4/50 to show improved functional ability LTG Duration 03/09 Assessment Summary Assessment Pt had imrpoved gait and improved abilityt o hip flex after treatment but did cont to have pain and have dec stance time. MD called and discussed further imaging and/ or referral to pain management . Physical Therapy Plan Frequency and Duration Frequency of Treatment 1-2x/wk Duration of treatment (weeks) 12 Plan of Care Start Date 12/16/23 Plan of Care End Date 03/09/24 Next Visit Focus/Plan Next Note Type Treatment Note Next Visit Plan advance core, work on lumbar spine mobility, cont to work on ability to get hip flex
--- NOTE | 2024-01-20 12:57 | PT.OTN ---
Current Diagnoses Pain in left hip (01/20/24) Pain in left knee (01/20/24) Low back pain, unspecified (01/20/24) Abnormal posture (01/20/24) Weakness (01/20/24) Physical Therapy Treatment Note PT-OP-A Visit Information Start: 12/04/23 11:31 Freq: Status: Active Protocol: Document 01/20/24 08:15 [facility] (Rec: 01/20/24 12:57 [facility] [id number]) Out-Patient Physical Therapy Visit Information Visit Information Visit Type Treatment Note Visit Start Time 09:07 Visit Stop Time 09:50 Visit Number 7 Number of RING SPINNER Visits 0 PT-OP-B Current Condition Start: 12/04/23 11:31 Freq: Status: Active Protocol: Document 12/16/23 13:07 [facility] (Rec: 12/16/23 17:33 [facility] [id number]) Current Condition History of Current Condition Onset Date 6 months ago Current Complaints L hip pain and knee pain History of Current Condition Pt reports pain in L hip to L knee and doctor thinks it is a nerve from his back. His L pelvis to down leg that cause pain. No known injury. about 6 months ago pain started and got progressively worse. He was prescribed meloxicam and that helpedf or 2-3 months then it stopped working now it is progressively gettng worse faster. He tried to get a MRI but it was denied. He is doing stretches. He is doing groin stretches and that is pretty hard. Has done no other treatment. Denies injuries in adult life. 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 He is having trouble working d/t pain. Prior Treatments and Tests xrays:IMPRESSION: No acute bony abnormality. 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 IMPRESSION: Minimal early arthritic changes. Treatment Goals Patient/Caregiver Goals dec pain PT-OP-C Subjective Start: 12/04/23 11:31 Freq: Status: Active Protocol: Document 01/20/24 08:15 [facility] (Rec: 01/20/24 12:57 [facility] [id number]) OP-PT Subjective Patient Comments Patient Comments Pt reports he did a lot on friday and has been really painful since. PT-OP-D Balance Start: 12/04/23 11:31 Freq: Status: Active Protocol: Document 12/16/23 13:07 [facility] (Rec: 12/16/23 17:33 [facility] [id number]) Balance Tests Single Limb Standing Single Limb- Right no difficulty Single Limb- Left able to lift leg only PT-OP-G Mobility & Gait Start: 12/04/23 11:31 Freq: Status: Active Protocol: Document 12/16/23 13:07 [facility] (Rec: 12/16/23 17:33 [facility] [id number]) OP Gait Assessment Comments Gait Comments walks w/walking stick-occ carries it. dec LLE stance time w/lat lean w/LLE wt bearing PT-OP-J Posture/Palpation/Skin Start: 12/04/23 11:31 Freq: Status: Active Protocol: Document 12/16/23 13:07 [facility] (Rec: 12/16/23 17:33 [facility] [id number]) Posture Evaluation [facility] Postural Classification System [facility] Postural Classifications Posterior/Anterior Comments Posture Comments LLE turned out, pelvis shifted L, rot L PT-OP-K Range of Motion Start: 12/04/23 11:31 Freq: Status: Active Protocol: Document 12/18/23 13:11 [facility] (Rec: 12/18/23 16:15 [facility] [id number]) Lumbar Spine Range of Motion Lumbar Spine Active Percentage Flexion 80 Extension 75 Rotation Left 60 Rotation Right 60 Lateral Flexion Left 60 Lateral Flexion Right 90 Comments pain hip w/B rot, L SB, flex, ext PT-OP-L Special Tests Start: 12/04/23 11:31 Freq: Status: Active Protocol: Document 12/16/23 13:07 [facility] (Rec: 12/16/23 17:33 [facility] [id number]) Special Tests Lumbar Spine Special Tests leg length Test Results R leg about 1/2 in longer Slump Test Results positive L Other Special Tests Special Tests reflexes wnl B achilles and patellar tendon & B LE sensation WNL PT-OP-M Strength Start: 12/04/23 11:31 Freq: Status: Active Protocol: Document 12/16/23 13:07 [facility] (Rec: 12/16/23 17:33 [facility] [id number]) Hip Strength Hip Manual Muscle Testing Right Flexion (L2) 5 Normal Abduction 4- Good- External Rotation 5 Normal Internal Rotation 5 Normal Left Flexion (L2) 3 Fair Abduction 3 Fair External Rotation 3 Fair Internal Rotation 3 Fair Comments pain Knee Strength Knee Manual Muscle Testing Right Flexion (S2) 5 Normal Extension (L3) 5 Normal Left Flexion (S2) 4 Good Extension (L3) 4 Good Ankle/Foot Strength Ankle and Foot Manual Muscle Testing Right Dorsiflexion (L4) 5 Normal Plantarflexion (S1) 5 Normal Left Dorsiflexion (L4) 5 Normal Plantarflexion (S1) 5 Normal Comments PF tested seated B PT-OP-Q Treatments Start: 12/04/23 11:31 Freq: Status: Active Protocol: Document 01/20/24 08:15 [facility] (Rec: 01/20/24 12:57 [facility] [id number]) Therapeutic Exercises Sitting Exercises sefl release Sitting Exercise Name quad Side left Equipment Used rolling pin Reps/Minutes 3 min Standing Exercises stretch Standing Exercise Name quad w/foot on plinth and COIL CONNECTOR to PT/counter hold Side left Reps/Minutes 3x45 sec Comments cues PPT october Standing Exercise Name cues core Side bilateral Reps/Minutes 6 Manual Therapy Treatment Soft Tissue Mobilization ant Body Location L TFL, RF, iliacus Mobilization Type Rolling,Strumming,Sustained Pressure Intensity/Depth Moderate Body Position Supine Joint Mobilizations hip Comments L abd FM lumbar Grade IV Body Position Sidelying Comments transverse FM L3-5 L PT-OP-T Assessment and Plan Start: 12/04/23 11:31 Freq: Status: Active Protocol: Document 01/20/24 08:15 [facility] (Rec: 01/20/24 12:57 [facility] [id number]) Physical Therapy Assessment Goals activity Short Term Goal (STG) Pt will be able to reciprocate up stairs w/o inc pain STG Duration 01/21 Alf Goal (LTG) pt will be able to don L shoes /socks w/o inc pain LTG Duration 03/09 strength Short Term Goal (STG) Pt will be indep w/HEP STG Duration 01/21 Jewel Bearing Maker Goal (LTG) Pt will score 5/5 BLE MMT and at least 3/5 LPM in all planes to show improved stability. LTG Duration 03/09 KENNETH Impairment 27/50 Short Term Goal (STG) Pt will improve KENNETH score to no greater than 17/50 to show improved functional ability STG Duration 01/23 Alf Goal (LTG) Pt will improve KENNETH score to no greater than 4/50 to show improved functional ability LTG Duration 03/09 Assessment Summary Assessment Pt presented w/dec stance time today on L > recently has been. He had inc pain in L leg and knee, which did imrpoved w/lumbar mobs and further improved w/manual to thigh and hip. He was able to do a couple self mobility exercises at end w/o inc pain too significantly Physical Therapy Plan Frequency and Duration Frequency of Treatment 1-2x/wk Duration of treatment (weeks) 12 Plan of Care Start Date 12/16/23 Plan of Care End Date 03/09/24 Next Visit Focus/Plan Next Note Type Treatment Note Next Visit Plan advance core, work on lumbar spine mobility, cont to work on ability to get hip flex
--- NOTE | 2024-04-05 15:36 | PT.OPDS ---
Current Diagnoses Pain in left hip (01/20/24) Pain in left knee (01/20/24) Low back pain, unspecified (01/20/24) Abnormal posture (01/20/24) Weakness (01/20/24) Visit Care Team Role Provider Type Tomi Chavarria DO Attending Provider Physician Family Provider Primary Care Provider Referring Provider Specialty: [facility] Practice Address: [address] [place] [address], [facility] Email: [email or web address] Visit Number Visit Number 7 Discharge Summary PT-OP-B Current Condition Start: 12/04/23 11:31 Freq: Status: Active Protocol: Document 12/16/23 13:07 [facility] (Rec: 12/16/23 17:33 [facility] [id number]) Current Condition History of Current Condition Onset Date 6 months ago Current Complaints L hip pain and knee pain History of Current Condition Pt reports pain in L hip to L knee and doctor thinks it is a nerve from his back. His L pelvis to down leg that cause pain. No known injury. about 6 months ago pain started and got progressively worse. He was prescribed meloxicam and that helpedf or 2-3 months then it stopped working now it is progressively gettng worse faster. He tried to get a MRI but it was denied. He is doing stretches. He is doing groin stretches and that is pretty hard. Has done no other treatment. Denies injuries in adult life. 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 He is having trouble working d/t pain. Prior Treatments and Tests xrays:IMPRESSION: No acute bony abnormality. 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 IMPRESSION: Minimal early arthritic changes. Treatment Goals Patient/Caregiver Goals dec pain PT-OP-C Subjective Start: 12/04/23 11:31 Freq: Status: Active Protocol: Document 01/20/24 08:15 [facility] (Rec: 01/20/24 12:57 [facility] [id number]) OP-PT Subjective Patient Comments Patient Comments Pt reports he did a lot on friday and has been really painful since. PT-OP-D Balance Start: 12/04/23 11:31 Freq: Status: Active Protocol: Document 12/16/23 13:07 [facility] (Rec: 12/16/23 17:33 [facility] [id number]) Balance Tests Single Limb Standing Single Limb- Right no difficulty Single Limb- Left able to lift leg only PT-OP-G Mobility & Gait Start: 12/04/23 11:31 Freq: Status: Active Protocol: Document 12/16/23 13:07 [facility] (Rec: 12/16/23 17:33 [facility] [id number]) OP Gait Assessment Comments Gait Comments walks w/walking stick-occ carries it. dec LLE stance time w/lat lean w/LLE wt bearing PT-OP-J Posture/Palpation/Skin Start: 12/04/23 11:31 Freq: Status: Active Protocol: Document 12/16/23 13:07 [facility] (Rec: 12/16/23 17:33 [facility] [id number]) Posture Evaluation [facility] Postural Classification System Mirta Postural Classifications Posterior/Anterior Comments Posture Comments LLE turned out, pelvis shifted L, rot L PT-OP-K Range of Motion Start: 12/04/23 11:31 Freq: Status: Active Protocol: Document 12/18/23 13:11 [facility] (Rec: 12/18/23 16:15 [facility] [id number]) Lumbar Spine Range of Motion Lumbar Spine Active Percentage Flexion 80 Extension 75 Rotation Left 60 Rotation Right 60 Lateral Flexion Left 60 Lateral Flexion Right 90 Comments pain hip w/B rot, L SB, flex, ext PT-OP-L Special Tests Start: 12/04/23 11:31 Freq: Status: Active Protocol: Document 12/16/23 13:07 [facility] (Rec: 12/16/23 17:33 [facility] [id number]) Special Tests Lumbar Spine Special Tests leg length Test Results R leg about 1/2 in longer Slump Test Results positive L Other Special Tests Special Tests reflexes wnl B achilles and patellar tendon & B LE sensation WNL PT-OP-M Strength Start: 12/04/23 11:31 Freq: Status: Active Protocol: Document 12/16/23 13:07 [facility] (Rec: 12/16/23 17:33 [facility] [id number]) Hip Strength Hip Manual Muscle Testing Right Flexion (L2) 5 Normal Abduction 4- Good- External Rotation 5 Normal Internal Rotation 5 Normal Left Flexion (L2) 3 Fair Abduction 3 Fair External Rotation 3 Fair Internal Rotation 3 Fair Comments pain Knee Strength Knee Manual Muscle Testing Right Flexion (S2) 5 Normal Extension (L3) 5 Normal Left Flexion (S2) 4 Good Extension (L3) 4 Good Ankle/Foot Strength Ankle and Foot Manual Muscle Testing Right Dorsiflexion (L4) 5 Normal Plantarflexion (S1) 5 Normal Left Dorsiflexion (L4) 5 Normal Plantarflexion (S1) 5 Normal Comments PF tested seated B PT-OP-T Assessment and Plan Start: 12/04/23 11:31 Freq: Status: Active Protocol: Document 04/05/24 15:34 [facility] (Rec: 04/05/24 15:36 [facility] [id number]) Physical Therapy Assessment Goals activity Short Term Goal (STG) Pt will be able to reciprocate up stairs w/o inc pain STG Duration 01/21 Latent Print Examiner Goal (LTG) pt will be able to don L shoes /socks w/o inc pain LTG Duration 03/09 strength Short Term Goal (STG) Pt will be indep w/HEP STG Duration 01/21 Half-Way Goal (LTG) Pt will score 5/5 BLE MMT and at least 3/5 LPM in all planes to show improved stability. LTG Duration 03/09 KENNETH Impairment 27/50 Short Term Goal (STG) Pt will improve KENNETH score to no greater than 17/50 to show improved functional ability STG Duration 01/23 Half-Way Goal (LTG) Pt will improve KENNETH score to no greater than 4/50 to show improved functional ability LTG Duration 03/09 Assessment Summary Assessment Pt last seen at end of December w/ plan to follow up w/doctor and now has had more imaging. DC d/t no longer attending PT Physical Therapy Plan Discharge Physical Therapy Discharge Reasons Plateau in Progress
== END 2024-04-08 08:55 | disposition home or self-care (01) ==
LOC: PHYS 09:00
PROVIDERS: Family Provider Family Medicine; PCP Family Medicine; Referring Provider Family Medicine; Visit Provider Family Medicine
DX: M54.50 Low back pain, unspecified (principal); R53.1 Weakness; R29.3 Abnormal posture; M25.562 Pain in left knee; M25.552 Pain in left hip
CPT/HCPCS: 97110; 97112; 97140; 97162; 97530; 97535

== ENCOUNTER → 2024-01-28 14:56 | Outpatient (CLI) | payer OTHER, MEDICAID, SELFPAY ==
--- NOTE | 2024-01-28 14:56 | DI.RAD.S_ITS ---
PROCEDURE: XR HIP W PEL IF DONE LT 2V INDICATIONS: L hip pain and weakness TECHNIQUE: AP pelvis with lateral view(s) of the left hip(s). COMPARISON: [facility], CR, XR HIP W PEL IF DONE DAVID 3TO4V, 08/05/2023, 11:06. FINDINGS: Bones: No fractures or dislocations. Pelvic ring appears intact. No suspicious bony lesions. There is severe joint space narrowing of the left hip. There is abnormal contour of the left femoral head. Substantially changed compared to prior radiographs 08/05/2023. There is sclerosis at the left femoral head. Minimal joint space loss at the right hip. Soft tissues: The visualized bowel gas pattern is normal. No suspicious soft tissue calcifications. IMPRESSION: Severe left hip joint space loss with abnormal contour of the left femoral head which could be due to subchondral collapse and/or avascular necrosis. MRI may be helpful for further evaluation. Dictated by: Skip Lino M.D. on 01/28/2024 at 19:03 Approved by: Skip Lino M.D. on 01/28/2024 at 19:06
== END ==
PROVIDERS: Family Provider Family Medicine; PCP Family Medicine; Referring Provider Family Medicine; Visit Provider Family Medicine
DX: M25.552 Pain in left hip (principal)
CPT/HCPCS: 73502

== ENCOUNTER → 2024-02-11 19:15 | Outpatient (CLI) | payer OTHER, MEDICAID, SELFPAY ==
--- NOTE | 2024-02-11 19:17 | DI.MRI.S_ITS ---
PROCEDURE: MR HIP LT WO CON INDICATIONS: eval L hip pain TECHNIQUE: Noncontrast coronal T1 spin echo and STIR through the bony pelvis. Coronal and axial T2 fast spin echo with fat saturation, sagittal T1 spin echo, and oblique axial T2 fast spin echo with fat saturation through the hip. COMPARISON: [facility], CR, XR HIP W PEL IF DONE DAVID 3TO4V, 08/05/2023, 11:06. [facility], CR, XR HIP W PEL IF DONE LT 2V, 01/28/2024, 15:14. FINDINGS: Image quality: Excellent. Left hip: There is a geographic area of abnormal signal at the superolateral aspect of the left femoral head and superior left femoral neck measuring approximately 3.8 x 1.6 x 2.4 cm. There is collapse of the overlying superolateral articular surface with remodeling of the femoral head. There is overlying full-thickness cartilage loss throughout the superior left hip. Moderate osseous edema is seen throughout the proximal femur and left acetabulum. There is a large joint effusion. Probable 10 mm loose body in the inferior aspect of the joint space. Bones and joints: Geographic area of osteonecrosis is seen in the right femoral head with mild surrounding osseous edema but no collapse of the articular surface. Mild edema is seen in the posterior medial right acetabulum. The remaining visualized osseous structures are normal in signal intensity. Multilevel degenerative disc disease and facet hypertrophy is seen in the included spine. Tendons and ligaments: Mild distal gluteus medius and minimus tendinosis. The proximal iliotibial band appears intact. The iliopsoas tendon appears intact, without adjacent bursal fluid collections. The origin of the hamstring tendon demonstrates mild tendinosis. The tendons for the direct and indirect heads of the rectus femoris muscle appear intact. Soft tissues: Visualized muscles demonstrate normal bulk and internal signal. Quadratus femoris muscle demonstrates no internal edema to suggest ischiofemoral impingement. The proximal sciatic neurovascular bundle appears normal adjacent to the hamstring tendons. Left scrotal hydrocele is incidentally noted. Small fat containing left inguinal hernia. IMPRESSION: 1. Collapse of the superolateral left femoral head articular surface with surrounding geographic area of abnormal signal, likely secondary to prior osteonecrosis versus a prior subchondral fracture with collapse. Osseous edema is seen throughout the left proximal femur and the left acetabulum. No definite signs of acute infection, although septic arthritis cannot be entirely excluded based on the imaging appearance and clinical correlation is recommended. 2. Large left hip effusion. A 10 mm intra-articular loose body is seen inferiorly. 3. Geographic area of osteonecrosis within the contralateral right femoral head with mild adjacent osseous edema but no signs of articular surface collapse. 4. Mild distal left gluteus medius and minimus tendinosis and proximal hamstring tendinosis. 5. Degenerative changes are seen in the included spine. Approved by: Derek Luz M.D. on 02/12/2024 at 8:13
== END ==
PROVIDERS: Family Provider Family Medicine; PCP Family Medicine; Referring Provider Family Medicine; Visit Provider Family Medicine
DX: M24.052 Loose body in left hip (principal); M25.452 Effusion, left hip; M87.851 Other osteonecrosis, right femur; M25.552 Pain in left hip; R60.0 Localized edema
CPT/HCPCS: 73721

== ENCOUNTER → 2024-06-30 10:44 | Outpatient (CLI) | payer OTHER, MEDICAID, SELFPAY ==
[2024-06-30 11:51] LABS: Add Manual Diff / Slide Review NO; Basophils Absolute Auto 0 /uL (0-100); Basophils Percent Auto 0.9 % (0-2); Eosinophils Absolute Auto 200 /uL (0-450); Eosinophils Percent Auto 4.2 % (2-4); Hematocrit 37.4 % (41-53); Hemoglobin 12.7 g/dL (13.5-17.5); Lymphocytes Absolute Auto 1100 /uL (1100-4500); Lymphocytes Percent Auto 28.9 % (25-40); Mean Corpuscular HGB Conc 33.9 % (30-36); Mean Corpuscular Hemoglobin 31.1 PG (26-34); Mean Corpuscular Volume 91.8 fL (80-100); Monocytes Absolute Auto 300 /uL (0-900); Monocytes Percent Auto 7.7 % (3-14); Neutrophils Absolute Auto 2200 /uL (1500-7000); Neutrophils Percent Auto 58.3 % (50-75); Platelet Count 280 X10^3/uL (150-400); Red Blood Cell Count 4.08 X10^6/uL (4.5-5.9); Red Cell Distribution Width 12.5 % (11.6-14.8); White Blood Cell Count 3.8 X10^3/uL (4.5-11.0)
[2024-06-30 12:17] LABS: Alanine Aminotransferase 21 IU/L (<50); Albumin 4.5 g/dL (3.5-5.0); Albumin Globulin Ratio 1.6 (1.0-2.8); Alkaline Phosphatase 91 U/L (38-126); Aspartate Aminotransferase 28 IU/L (17-59); BUN Creatinine Ratio 22.8 (6-22); Bilirubin Total 0.5 mg/dL (0.2-1.3); Blood Urea Nitrogen 18 mg/dL (9-20); Calcium 9.5 mg/dL (8.4-10.2); Carbon Dioxide 26 mmol/L (22-32); Chloride 106 mmol/L (98-107); Cholesterol 211 mg/dL (140-199); Estimated Glomerular Filt Rate > 60 mL/min (>60); Globulin 2.9 g/dL (1.7-4.1); Glucose 100 mg/dL (70-100); HDL Cholesterol 54 mg/dL (40-60); HEMOLYSIS < 15 (0-50); LDL Cholesterol Calculated 142 mg/dL (<100); Potassium 4.7 mmol/L (3.4-5.1); Sodium 139 mmol/L (137-145); Total Protein 7.4 g/dL (6.3-8.2); Triglycerides 73 mg/dL (35-150)
[2024-06-30 12:40] LABS: Prostate Specific Antigen 0.362 ng/mL (0.10-4.00)
[2024-07-04 17:07] LABS: Percent Free Testosterone 2.63 % (1.50-4.20); Testosterone Free 5.95 ng/dL (5.00-21.00); Testosterone Total 226.1 ng/dL (264.0-916.0)
== END ==
PROVIDERS: Family Provider Family Medicine; PCP Family Medicine; Referring Provider Family Medicine; Visit Provider Family Medicine
DX: Z00.00 Encounter for general adult medical examination without abnormal findings (principal); E34.9 Endocrine disorder, unspecified; Z86.0100 Personal history of colon polyps, unspecified; E78.00 Pure hypercholesterolemia, unspecified
CPT/HCPCS: 36415; 80053; 80061; 84153; 84402; 84403; 85025

== ENCOUNTER → 2025-03-15 13:18 | Outpatient (CLI) | payer OTHER, SELFPAY ==
[2025-03-15 14:07] LABS: Add Manual Diff / Slide Review NO; Hematocrit 36.8 % (41-53); Hemoglobin 13.0 g/dL (13.5-17.5); Lymphocytes Absolute Auto 1600 /uL (1100-4500); Mean Corpuscular HGB Conc 35.2 % (30-36); Mean Corpuscular Hemoglobin 32.0 PG (26-34); Mean Corpuscular Volume 90.8 fL (80-100); Platelet Count 294 X10^3/uL (150-400)
[2025-03-15 14:22] LABS: Alanine Aminotransferase 25 IU/L (<50); Albumin 4.6 g/dL (3.5-5.0); Albumin Globulin Ratio 1.5 (1.0-2.8); Alkaline Phosphatase 77 U/L (38-126); Blood Urea Nitrogen 19 mg/dL (9-20); Calcium 9.7 mg/dL (8.4-10.2); Carbon Dioxide 26 mmol/L (22-32); Chloride 107 mmol/L (98-107); Cholesterol 185 mg/dL (140-199); Estimated Glomerular Filt Rate > 60 mL/min (>60); Globulin 3.1 g/dL (1.7-4.1); Glucose 73 mg/dL (70-99); HDL Cholesterol 43 mg/dL (40-60); HEMOLYSIS < 15 (0-50); Potassium 4.6 mmol/L (3.4-5.1); Sodium 141 mmol/L (137-145); Total Protein 7.7 g/dL (6.3-8.2); Triglycerides 119 mg/dL (35-150)
[2025-03-15 14:52] LABS: TSH w/ Reflex to FT4 0.81 uIU/mL (0.47-4.68)
== END ==
PROVIDERS: Family Provider Family Medicine; PCP Family Medicine; Referring Provider Family Medicine; Visit Provider Family Medicine
DX: E78.00 Pure hypercholesterolemia, unspecified (principal); R73.03 Prediabetes; E34.9 Endocrine disorder, unspecified
CPT/HCPCS: 36415; 80053; 80061; 84443; 85025